=== PATIENT | male | born 1945 | race Caucasian/White ===

== ENCOUNTER 2016-11-05 08:56 | Emergency (ER) | payer MEDICAID ==
[~2016-11-05] VITALS: Ht 185.4 cm; Wt 84.0 kg
[2016-11-05] VITALS (7 sets, daily range): BP systolic 144–169; BP diastolic 80–90; PULSE 70–86; RESP 16–18; TEMP 97.8; O2SAT 95–99
[~2016-11-05 08:56] MED LIST: MOBI15TA PO
[2016-11-05] MEDS ORDERED: SODIUM CHLORID 0.9% 500 ML INJ 500 ML IV ONE ×2 (09:30→11:15)
[2016-11-05 09:43] LABS: AUTOMATED NEUTROPHIL # 6.8 TH/MM3 (1.8-7.7); BASOPHIL # 0.4 TH/MM3 (0-0.2); EOSINOPHIL # 0.1 TH/MM3 (0-0.4); EOSINOPHIL % 1.5 % (0.0-4.0); HEMATOCRIT 47.2 % (39.0-51.0); HEMO FLAGS DIFF FINAL; LYMPH % 15.4 % (9.0-44.0); LYMPHOCYTE # 1.5 TH/MM3 (1.0-4.8); MEAN CELL VOLUME 91.1 FL (80.0-100.0); MEAN CORPUSCULAR HEMOGLOBIN 29.5 PG (27.0-34.0); MEAN CORPUSCULAR HGB CONC 32.4 % (32.0-36.0); MONO % 6.8 % (0.0-8.0); NEUT % 72.3 % (16.0-70.0); PLATELET COUNT 181 TH/MM3 (150-450); RED BLOOD COUNT 5.18 MIL/MM3 (4.50-5.90); RED CELL DISTRIBUTION WIDTH 12.8 % (11.6-17.2); WHITE BLOOD COUNT 9.4 TH/MM3 (4.0-11.0)
[2016-11-05 10:00] LABS: BICARBONATE 25.2 MEQ/L (21.0-32.0)
[2016-11-05 10:03] LABS: ANION GAP 9 MEQ/L (5-15); AST (GOT) 15 U/L (15-37); CHLORIDE 109 MEQ/L (98-107); GLOMERULAR FILTRATION RATE 60 ML/MIN (>89); POTASSIUM 3.7 MEQ/L (3.5-5.1); SODIUM (NA) 143 MEQ/L (136-145)
[2016-11-05 10:05] LABS: ALT (GPT) 20 U/L (12-78)
[2016-11-05 10:06] LABS: ALKALINE PHOSPHATASE 97 U/L (45-117); BLOOD UREA NITROGEN 22 MG/DL (7-18)
[2016-11-05] MEDS ORDERED: IOHEXOL 350 MG/ML 10 ML VIAL (for RAD DIAG) IV ONE (10:18)
--- NOTE | 2016-11-05 10:48 | PD ---
HPI Chief Complaint: GI Complaint Time Seen by Provider: 09:11 Travel History International Travel<30 days: No Contact w/Intl Traveler<30days: No Traveled to known affect area: No History of Present Illness HPI Patient is a 71-year-old male who comes in complaining of abdominal pain. He says he has had pain for 2 days since eating some peanuts late at night. He said some nausea, but denies any vomiting. He says that he feels like he needs to have a bowel movement, but has been unable to. He denies any fever or chills. He denies any chest pain or shortness of breath. PFSH Past Medical History Diminished Hearing: No Immunizations Current: No Tetanus Vaccination: > 5 Years Influenza Vaccination: No Past Surgical History Other Surgery: Yes (left inguinal hernia repiar) Social History Alcohol Use: Yes (~2X WEEKLY) Tobacco Use: No Substance Use: No Allergies-Medications (Allergen,Severity, Reaction): Coded Allergies: No Known Allergies (Verified , 11/05/16) Reported Meds & Prescriptions Reported Meds & Active Scripts Active Mobic (Meloxicam) 15 Mg Tab 15 Mg PO DAILY Review of Systems Except as stated in HPI: all other systems reviewed are Neg General / Constitutional: No: Fever, Chills HENT: No: Headaches, Lightheadedness Cardiovascular: No: Chest Pain or Discomfort Respiratory: No: Shortness of Breath Gastrointestinal: Positive: Nausea, Abdominal Pain, Constipation, No: Vomiting , Diarrhea Genitourinary: No: Dysuria Musculoskeletal: No: Myalgias, Weakness Skin: No Rash, No Change in Pigmentation Neurologic: No: Weakness, Dizziness Physical Exam Narrative GENERAL: Awake and alert, and in no acute distress. SKIN: Focused skin assessment warm/dry. HEAD: Atraumatic. Normocephalic. EYES: Pupils equal and round. No scleral icterus. ENT: Mucous membranes pink and moist. NECK: Trachea midline. No JVD. CARDIOVASCULAR: Regular rate and rhythm. No murmur appreciated. RESPIRATORY: No accessory muscle use. Clear to auscultation. Breath sounds equal bilaterally. GASTROINTESTINAL: Abdomen soft, non-tender, nondistended. No rebound or guarding. Left inguinal hernia, bulge in pelvic area. MUSCULOSKELETAL: No obvious deformities. No clubbing. No cyanosis. No edema. NEUROLOGICAL: Awake and alert. No obvious cranial nerve deficits. Motor grossly within normal limits. Normal speech. PSYCHIATRIC: Appropriate mood and affect; insight and judgment normal. Data Data Last Documented VS Vital Signs Date Time Temp Pulse Resp B/P Pulse Ox O2 Delivery O2 Flow Rate FiO2 11/05/16 11:50 99 2.00 11/05/16 11:21 76 18 169/90 Room Air 11/05/16 09:03 97.8 Orders Complete Blood Count With Diff (11/05/16 09:17) Comprehensive Metabolic Panel (11/05/16 09:17) Ct Abd/Pel W Iv Contrast(Rout) (11/05/16 ) Sodium Chlorid 0.9% 500 Ml Inj (Ns 500 M (11/05/16 09:30) Iohexol 350 Inj (Omnipaque 350 Inj) (11/05/16 10:18) Morphine Inj (Morphine Inj) (11/05/16 11:15) Sodium Chlorid 0.9% 500 Ml Inj (Ns 500 M (11/05/16 11:15) Lactic Acid (11/05/16 11:02) Propofol 200 Mg/20 Ml Inj (Diprivan 200 (11/05/16 11:30) Labs Laboratory Tests Test 11/05/16 11/05/16 09:28 11:09 White Blood Count 9.4 TH/MM3 Red Blood Count 5.18 MIL/MM3 Hemoglobin 15.3 GM/DL Hematocrit 47.2 % Mean Corpuscular Volume 91.1 FL Mean Corpuscular Hemoglobin 29.5 PG Mean Corpuscular Hemoglobin 32.4 % Concent Red Cell Distribution Width 12.8 % Platelet Count 181 TH/MM3 Mean Platelet Volume 8.9 FL Neutrophils (%) (Auto) 72.3 % Lymphocytes (%) (Auto) 15.4 % Monocytes (%) (Auto) 6.8 % Eosinophils (%) (Auto) 1.5 % Basophils (%) (Auto) 4.0 % Neutrophils # (Auto) 6.8 TH/MM3 Lymphocytes # (Auto) 1.5 TH/MM3 Monocytes # (Auto) 0.6 TH/MM3 Eosinophils # (Auto) 0.1 TH/MM3 Basophils # (Auto) 0.4 TH/MM3 CBC Comment DIFF FINAL Differential Comment Sodium Level 143 MEQ/L Potassium Level 3.7 MEQ/L Chloride Level 109 MEQ/L Carbon Dioxide Level 25.2 MEQ/L Anion Gap 9 MEQ/L Blood Urea Nitrogen 22 MG/DL Creatinine 1.20 MG/DL Estimat Glomerular Filtration 60 ML/MIN Rate Random Glucose 106 MG/DL Calcium Level 9.1 MG/DL Total Bilirubin 1.0 MG/DL Aspartate Amino Transf 15 U/L (AST/SGOT) Alanine Aminotransferase 20 U/L (ALT/SGPT) Alkaline Phosphatase 97 U/L Total Protein 7.1 GM/DL Albumin 3.7 GM/DL Lactic Acid Level 0.7 mmol/L MDM Medical Decision Making Medical Screen Exam Complete: Yes Emergency Medical Condition: Yes Medical Record Reviewed: Yes Differential Diagnosis Colitis versus diverticulitis versus constipation Narrative Course Patient is a 8-year-old male who comes in complaining of left lower quadrant abdominal pain and constipation. Exam shows a bulge in the left pelvic area. IV established, labs sent. Labs show no acute abnormalities. CT performed shows a left inguinal hernia with sigmoid colon within it causing a partial small bowel obstruction. Dr. Colby consult for general surgery. He was able to reduce the hernia under conscious sedation. He advised the patient follow up in his office. Patient observed after conscious sedation with no further issues. His abdomen is soft and nontender. He is advised that if he feels the hernia come out again and is unable to reduce it, he should return immediately. Advised to follow-up with Dr. Colby on Tuesday. Diagnosis Primary Impression: Inguinal hernia Qualified Code: K40.31 - Recurrent unilateral inguinal hernia with obstruction and without gangrene Referrals: Jah Colby MD Patient Instructions: General Instructions, Inguinal Hernia (ED) Additional Instructions: Follow up with Dr. Colby of general surgery on Tuesday, call for an appointment. If you feel the hernia come out and cannot push it back in, return to the ED immediately. Return at any time for any worsening symptoms. Disposition: 01 DISCHARGE HOME Condition: Stable Minal Ye MD Nov 05, 2016 10:48
--- NOTE | 2016-11-05 10:50 | RADHPO ---
EXAM DATE/TIME: 11/05/2016 10:08 [facility] COMPARISON: CT ABDOMEN & PELVIS W CONTRAST, October 10, 2015, 12:50. INDICATIONS : Diffuse abdominal pain x 2 days. IV CONTRAST: 80 cc Omnipaque 350 (iohexol) IV ORAL CONTRAST: No oral contrast ingested. RADIATION DOSE: 13.36 CTDIvol (mGy) MEDICAL HISTORY : Hernia, inguinal. SURGICAL HISTORY : Inguinal hernia repair. ENCOUNTER: Initial ACUITY: 2 days PAIN SCALE: 9/10 LOCATION: Diffuse abdomen TECHNIQUE: Volumetric scanning of the abdomen and pelvis was performed. Using automated exposure control and ad justment of the mA and/or kV according to patient size, radiation dose was kept as low as reasonably achievable to obtain optimal diagnostic quality images. FINDINGS: LOWER LUNGS: The visualized lower lungs are clear. There is a small retrocardiac hiatal hernia. LIVER: Homogeneous density without lesion. There is no dilation of the biliary tree. Faintly calcified gall stones are again noted. SPLEEN: Normal size without lesion. PANCREAS: Within normal limits. KIDNEYS: Normal in size and shape. There is no mass, stone or hydronephrosis. ADRENAL GLANDS: Within normal limits. VASCULAR: There is a borderline abdominal aortic aneurysm measuring up to 3 cm with peripheral plaque. BOWEL/MESENTERY: There is mild gaseous distention of the proximal and mid colon extending down into the left lower donovan drant. A portion of the proximal sigmoid colon extends into the proximal inguinal hernia along with o mental fat. The colon past this point is decompressed. There are scattered diverticuli. There is no f ree air or fluid. The small bowel is decompressed and unremarkable. There is a normal appendix with s mall appendicolith. ABDOMINAL WALL: Within normal limits. RETROPERITONEUM: There is no lymphadenopathy. BLADDER: No wall thickening or mass. REPRODUCTIVE: Within normal limits. INGUINAL: No evidence of adenopathy. There is a left inguinal hernia containing a small amount of fluid and ome ntal fat. A portion of the distal descending colon extends into the proximal hernia. MUSCULOSKELETAL: Within normal limits for patient age. CONCLUSION: 1. Left inguinal hernia containing omental fat. The proximal sigmoid colon extends into the possible hernia and there is dilatation proximal to this portion which could indicate partial obstruction. 2. Borderline abdominal aortic aneurysm. 3. Hiatal hernia. 4. Cholelithiasis. Benitez Thompson MD on November 05, 2016 at 10:32 Board Certified Radiologist. This report was verified electronically.
[2016-11-05] MEDS ORDERED: MORPHINE SULFATE 4 MG/ML INJ IV PUSH ONE (11:15)
[2016-11-05] MEDS ORDERED: PROPOFOL 200 MG/20 ML AMP IV ONE (11:30)
--- NOTE | 2016-11-06 11:05 | MB ---
cc: MEGHANA DANIELLE DATE OF CONSULTATION: 11/05/2016. REASON FOR CONSULTATION: Incarcerated left inguinal hernia. PERSON REQUESTING CONSULTATION: Dr. Pagan, emergency room physician. HISTORY OF PRESENT ILLNESS: The patient is a 71-year-old male who was in his normal state of health when he developed increasing left groin and abdominal pain. He had some nausea but denies vomiting. He has been obstipated for least 24 hours. The patient was seen the emergency department and was found to have a left bulge in his groin concerning for possible inguinal hernia. The patient did undergo a CT scan which did show a sigmoid colon incarceration and there was also some omental fat and a inguinal hernia. General surgery was consulted to see the patient. The patient's evaluation states that approximately 10 years ago he had an open left inguinal hernia repair with Dr. Sanchez and was unaware that he had had a recurrence as he has not had any previous pain other than this episode. REVIEW OF SYSTEMS: A twelve-point review of systems was gone over with the patient and is negative except for the pertinent positives mentioned above in the history of present illness. PAST MEDICAL HISTORY: None. PAST SURGICAL HISTORY: 1. Left inguinal hernia repair as above. SOCIAL HISTORY: The patient uses alcohol occasionally. Denies illicit drug use or tobacco use. ALLERGIES: NO KNOWN DRUG ALLERGIES. MEDICATIONS: 1. Mobic PRN. FAMILY HISTORY: Noncontributory. PHYSICAL EXAMINATION: VITAL SIGNS: Temperature 97.8, pulse 76, respiratory rate 18, blood pressure 169/70, 02 saturation 99%. GENERAL: The patient is a well-developed, well-nourished male in no acute distress. HEAD, EYES, EARS, NOSE, THROAT: Head is normocephalic and atraumatic. Pupils equal, round and reactive to light. The sclerae are nonicteric. The mucous membranes are moist. NECK: The neck is supple. No jugular venous distention. LUNGS: The lungs are clear to auscultation bilaterally. Nonlabored breathing pattern. HEART: Regular rate and rhythm. ABDOMEN: Abdomen soft and nondistended. No tenderness. No surgical scars. No rebound tenderness. No organomegaly. No ascites. Normal bowel sounds. INGUINAL EXAM: Left small approximately 3 cm incarcerated left inguinal hernia likely direct, almost to the area of the femoral canal with a very large inguinal scar above this consistent with a hernia scar. TESTICULAR EXAM: Within normal limits. EXTREMITIES: No cyanosis, clubbing or edema. NEUROLOGIC: The patient is awake, alert, appropriate and oriented times four. Moving all extremities equally. Nonfocal. Cranial nerves II through XII are grossly intact. IMAGING STUDIES: CT scan shows left inguinal hernia as above. LABORATORY STUDIES: A white blood cell count 9.4. Lactic acid 0.7 within normal limits. ASSESSMENT AND PLAN: The patient is a 71-year-old male with an incarcerated left inguinal hernia. The patient has no obvious signs of bowel ischemia and I feel that a reduction in the emergency department this is indicated for his incarceration. Sedation will be performed. We will discuss this with Dr. Pagan, the emergency room physician, to provide conscious sedation for the attempted reduction. If successful, the patient after a brief observation can be discharged for close follow up for consideration of elective hernia repair. If we are unsuccessful at reducing this, the patient will need urgent surgical intervention. I have discussed this with the patient and he is in agreement with the attempted reduction of the hernia and will followup in my office on Tuesday or at his earliest convenience. MD STARR Schaffer/BRII /9:14 PM /10:49 AM MTDD
[2016-11-29] MEDS ORDERED: MOBI15TA PO (10:47)
== END 2016-11-05 13:58 | disposition home or self-care (01) ==
LOC: PHED 08:56
DX: K40.30 Unilateral inguinal hernia, with obstruction, without gangrene, not specified as recurrent (principal)
CPT/HCPCS: 49999; 74177; 80053; 83605; 85025; 94770; 96361; 96374; 99156; 99284; J2270; J7040; Q9967

== ENCOUNTER 2017-06-09 04:15 | Emergency (ER) | payer MEDICAID ==
[~2017-06-09] VITALS: Ht 185.4 cm; Wt 85.1 kg
[2017-06-09 04:17] VITALS: BP 114/83; PULSE 225; RESP 20; TEMP 98.4; O2SAT 99
[2017-06-09] MEDS ORDERED: DILTIAZEM HCL 25 MG/5 ML VIAL ONE (04:25)
[2017-06-09] MEDS ORDERED: ADENOSINE IV SOLN 3 MG/ML 2 ML VIAL ONE (04:25)
[2017-06-09] MEDS ORDERED: ADENOSINE IV SOLN 3 MG/ML 2 ML VIAL IV PUSH ONE ×2 (04:30)
[2017-06-09] MEDS ORDERED: DILTIAZEM HCL 25 MG/5 ML VIAL IV ONE (04:30)
[2017-06-09] MEDS ORDERED: SODIUM CHLOR 0.9% 1000 ML INJ 1,000 ML IV ONE (04:30)
[2017-06-09 04:39] VITALS: BP_SYST 123; BP_SYST 124; BP_DIAS 80; BP_DIAS 88; PULSE 94; RESP 20; O2SAT 98
[2017-06-09 04:43] VITALS: BP 124/88; PULSE 93; RESP 20; O2SAT 99
[2017-06-09] MEDS ORDERED: SODIUM CHLORIDE 0.9% FLUSH 10 ML FLUSH IVF PRN (04:45)
[2017-06-09] MEDS ORDERED: ASPIRIN 81 MG CHEW TAB CHEW ONE (04:45)
[2017-06-09 04:51] LABS: AUTOMATED NEUTROPHIL # 5.1 TH/MM3 (1.8-7.7); BASOPHIL # 0.1 TH/MM3 (0-0.2); EOSINOPHIL # 0.2 TH/MM3 (0-0.4); EOSINOPHIL % 3.1 % (0.0-4.0); HEMATOCRIT 48.5 % (39.0-51.0); HEMO FLAGS DIFF FINAL; LYMPH % 23.8 % (9.0-44.0); LYMPHOCYTE # 1.8 TH/MM3 (1.0-4.8); MEAN CELL VOLUME 87.2 FL (80.0-100.0); MEAN CORPUSCULAR HEMOGLOBIN 28.9 PG (27.0-34.0); MEAN CORPUSCULAR HGB CONC 33.1 % (32.0-36.0); MONO % 6.3 % (0.0-8.0); NEUT % 65.8 % (16.0-70.0); PLATELET COUNT 211 TH/MM3 (150-450); RED BLOOD COUNT 5.56 MIL/MM3 (4.50-5.90); RED CELL DISTRIBUTION WIDTH 12.4 % (11.6-17.2); WHITE BLOOD COUNT 7.7 TH/MM3 (4.0-11.0)
[2017-06-09 04:59] LABS: CHLORIDE 102 MEQ/L (98-107); POTASSIUM 3.8 MEQ/L (3.5-5.1); SODIUM (NA) 138 MEQ/L (136-145)
[2017-06-09 05:02] LABS: ANION GAP 10 MEQ/L (5-15); BICARBONATE 25.9 MEQ/L (21.0-32.0); BLOOD UREA NITROGEN 24 MG/DL (7-18); MAGNESIUM 2.1 MG/DL (1.5-2.5)
[2017-06-09 05:04] LABS: APTT (PATIENT) 29.2 SEC (24.3-30.1); PROTHROMBIN TIME - PATIENT 10.5 SEC (9.8-11.6)
[2017-06-09] MEDS ORDERED: PROP20TA3 PO ×2 (05:04→05:47)
[2017-06-09 05:05] LABS: GLOMERULAR FILTRATION RATE 50 ML/MIN (>89)
[2017-06-09 05:08] LABS: CREATINE KINASE 140 U/L (39-308)
--- NOTE | 2017-06-09 05:09 | PD ---
HPI Chief Complaint: Cardiac Complaint Time Seen by Provider: 04:24 Travel History International Travel<30 days: No Contact w/Intl Traveler<30days: No Traveled to known affect area: No History of Present Illness HPI 72-year-old male presents to the emergency department by private transportation for complaint of palpitations and fast heartbeat. Patient denies any chest pain shortness of breath sweats referred neck jaw back shoulder arm or abdominal pain. Patient's had no near-syncope or syncope. Patient has had no nausea or vomiting. States fast heart rate and palpitations have been present for approximately patient reports she's had this before and was evaluated at [facility] and in [place]. Patient states he wore a Holter for one month and was told by his assistant city attorney nothing was wrong. Patient denies other concerns this time. Patient denies chest pain or shortness of breath. Patient had no diaphoresis. Patient is unable to identify exacerbating or alleviating factors. Denies any known triggers. Took no treatment medications prior to arrival to the emergency department. Patient is not on a blood thinning agent. Patient reportedly has prescription for propranolol that he takes on an as- needed basis but he has been out of this prescription, (reports, typically prevents these episodes and controls them quickly when palpitations develop after he takes a dose). Patient denies caffeine or stimulant use or alcohol ingestion. Pain intensity, 0/10. PFSH Past Medical History Narrative Medical svt; no tobacco; nursing notes reviewed Heart Rhythm Problems: Yes (SVT) Diminished Hearing: No Kidney Stones: Yes Immunizations Current: No Tetanus Vaccination: Unknown Influenza Vaccination: No Past Surgical History Abdominal Surgery: Yes Other Surgery: Yes (LEFT INGUINAL HERNIA REPAIR) Social History Alcohol Use: Yes (SOCIALLY) Tobacco Use: No Substance Use: No Allergies-Medications (Allergen,Severity, Reaction): Coded Allergies: No Known Allergies (Verified Allergy, Unknown, 06/09/17) Reported Meds & Prescriptions Reported Meds & Active Scripts Active Propranolol (Propranolol HCl) 20 Mg Tab 20 Mg PO Q12HR Reported Propranolol (Propranolol HCl) 20 Mg Tab 20 Mg PO Q12HR Review of Systems General / Constitutional: Positive: Fever HENT: No: Congestion (objective) Cardiovascular: No: Chest Pain or Discomfort Respiratory: No: Shortness of Breath Gastrointestinal: No: Vomiting Musculoskeletal: No: Myalgias, Weakness Skin: Positive Rash Neurologic: No: Weakness Psychiatric: No: Anxiety Hematologic/Lymphatic: No: Easy Bruising Physical Exam Narrative GENERAL: Well-developed well-nourished female in no acute distress no respiratory distress; gcs: 15 SKIN: Warm and dry. HEAD: Normocephalic. EYES: No scleral icterus. No injection or drainage. NECK: Supple, trachea midline. No JVD or lymphadenopathy. CARDIOVASCULAR: Regular rate and rhythm without murmurs, gallops, or rubs. RESPIRATORY: Breath sounds equal bilaterally. No accessory muscle use. GASTROINTESTINAL: Abdomen soft, non-tender, nondistended. MUSCULOSKELETAL: No cyanosis, or edema. BACK: Nontender without obvious deformity. No CVA tenderness. Data Data Last Documented VS Vital Signs Date Time Temp Pulse Resp B/P (MAP) Pulse Ox O2 Delivery O2 Flow Rate FiO2 06/09/17 06:40 86 16 143/89 (107) 97 Room Air 06/09/17 05:26 2.00 06/09/17 04:17 98.4 Orders Orders Diltiazem Inj (Cardizem Inj) (06/09/17 04:30) Diltiazem Inj (Cardizem Inj) (06/09/17 04:25) Adenosine Inj (Adenocard Inj) (06/09/17 04:30) Sodium Chlor 0.9% 1000 Ml Inj (Ns 1000 M (06/09/17 04:30) Adenosine Inj (Adenocard Inj) (06/09/17 04:25) Adenosine Inj (Adenocard Inj) (06/09/17 04:30) Electrocardiogram (06/09/17 04:31) Basic Metabolic Panel (Bmp) (06/09/17 04:31) Ckmb (Isoenzyme) Profile (06/09/17 04:31) Complete Blood Count With Diff (06/09/17 04:31) Magnesium (Mg) (06/09/17 04:31) Prothrombin Time / Inr (Pt) (06/09/17 04:31) Act Partial Throm Time (Ptt) (06/09/17 04:31) Troponin I (06/09/17 04:31) Chest, Single Ap (06/09/17 04:31) Ecg Monitoring (06/09/17 04:31) Bilateral Bp Monitoring (06/09/17 04:31) Iv Access Insert/Monitor (06/09/17 04:31) Oximetry (06/09/17 04:31) Oxygen Administration (06/09/17 04:31) Sodium Chloride 0.9% Flush (Ns Flush) (06/09/17 04:45) Thyroid Stimulating Hormone (06/09/17 04:31) Electrocardiogram (06/09/17 ) Aspirin Chew (Aspirin Chew) (06/09/17 04:45) CKMB (06/09/17 04:20) CKMB% (06/09/17 04:20) Troponin I (06/09/17 07:20) Labs Laboratory Tests Test 06/09/17 04:20 White Blood Count 7.7 TH/MM3 Red Blood Count 5.56 MIL/MM3 Hemoglobin 16.1 GM/DL Hematocrit 48.5 % Mean Corpuscular Volume 87.2 FL Mean Corpuscular Hemoglobin 28.9 PG Mean Corpuscular Hemoglobin Concent 33.1 % Red Cell Distribution Width 12.4 % Platelet Count 211 TH/MM3 Mean Platelet Volume 8.8 FL Neutrophils (%) (Auto) 65.8 % Lymphocytes (%) (Auto) 23.8 % Monocytes (%) (Auto) 6.3 % Eosinophils (%) (Auto) 3.1 % Basophils (%) (Auto) 1.0 % Neutrophils # (Auto) 5.1 TH/MM3 Lymphocytes # (Auto) 1.8 TH/MM3 Monocytes # (Auto) 0.5 TH/MM3 Eosinophils # (Auto) 0.2 TH/MM3 Basophils # (Auto) 0.1 TH/MM3 CBC Comment DIFF FINAL Differential Comment Prothrombin Time 10.5 SEC Prothromb Time International Ratio 1.0 RATIO Activated Partial Thromboplast Time 29.2 SEC Blood Urea Nitrogen 24 MG/DL Creatinine 1.40 MG/DL Random Glucose 102 MG/DL Calcium Level 9.8 MG/DL Magnesium Level 2.1 MG/DL Sodium Level 138 MEQ/L Potassium Level 3.8 MEQ/L Chloride Level 102 MEQ/L Carbon Dioxide Level 25.9 MEQ/L Anion Gap 10 MEQ/L Estimat Glomerular Filtration Rate 50 ML/MIN Total Creatine Kinase 140 U/L Creatine Kinase MB 2.3 NG/ML Troponin I LESS THAN 0.02 NG/ML Thyroid Stimulating Hormone 3rd Gen 2.460 uIU/ML MDM Medical Decision Making Medical Screen Exam Complete: Yes Emergency Medical Condition: Yes Medical Record Reviewed: Yes Interpretation(s) Vital Signs Date Time Temp Pulse Resp B/P (MAP) Pulse Ox O2 Delivery O2 Flow Rate FiO2 06/09/17 04:43 93 20 124/88 (100) 99 2.00 06/09/17 04:39 94 20 123/80 (94) 98 Nasal Cannula 2.00 124/88 (100) 06/09/17 04:20 99 Nasal Cannula 2.00 06/09/17 04:17 98.4 225 20 114/83 (93) 99 CBC & BMP Diagram 06/09/17 04:20 Calcium Level 9.8, Magnesium Level 2.1 Vital Signs Date Time Temp Pulse Resp B/P (MAP) Pulse Ox O2 Delivery O2 Flow Rate FiO2 06/09/17 04:43 93 20 124/88 (100) 99 2.00 06/09/17 04:39 94 20 123/80 (94) 98 Nasal Cannula 2.00 124/88 (100) 06/09/17 04:20 99 Nasal Cannula 2.00 06/09/17 04:17 98.4 225 20 114/83 (93) 99 EKG: SVT rate [address] elevation nonspecific ST-T changes EKG: Sinus tachycardia rate [address] elevation or injury pattern or ectopy noted Differential Diagnosis Palpitations, arrhythmia, SVT, atrial fibrillation, atypical chest pain, DC, ACS ; patient was placed on air sampling and monitoring with continuous pulse oximetry and IV access obtained specimens collected and sent for resulting; patient administered Adenocard milligrams followed by Adenocard 12 mg for converted back to sinus rhythm this was not utilized. Narrative Course Patient is placed on air sampling and monitoring with continuous pulse oximetry IV access obtained patient's heart rate and a regular narrow complex rhythm; vagal maneuvers attempted without success; EKG consistent with SVT with regular pattern no acute injury pattern as to elevation: Patient administered 6 mg of Adenocard rapid push with subsequent bolus without change in rate; patient administered additional Adenocard 12 mg IV rapid push with normal saline bolus with conversion to sinus rhythm. Patient tolerated chemical conversion well. Repeat EKG was sinus tachycardia rate [address] elevation or injury pattern or ectopy noted CBC is automated differential values in normal range Metabolic panel values in normal range except for renal insufficiency BUN 24 creatinine 1.4 Troponin I is less than 0.02, not elevated with a CK total of 140 which is not elevated; TSH: Was found to be within normal range Chest x-ray no lobar infiltrate no vascular congestion. @ 5:35 patient remains stable without recurrent psvt; patient reports that again he has been worked up extensively by his assistant city attorney in [place] who has given her a prescription for propranolol 20 mg that he is to take every 12 hours as needed. Patient states he is out of his medication. Patient states normally he would've taken a dose and he typically has immediate response to the medication with resolution of his palpitations or rapid heartbeat but as he did not have access to this medication he came to the emergency room tonight for intervention. Patient states that he needs a refill of this medication. Patient again denies any chest pain or shortness of breath and is desirous of being discharged home. Patient states he has had this before and he typically responds well to propranolol but did not have access to this medication this morning. Care signed over to Dr Cardona for follow up of trop #2 and disposition Diagnosis Primary Impression: Paroxysmal SVT (supraventricular tachycardia) Additional Impression: Medication refill Referrals: Primary Care Physician 1 day Patient Instructions: General Instructions Additional Instructions: Follow-up with your primary care provider/assistant city attorney call office in a.m. to schedule follow-up appointment this week Take propranolol as prescribed as needed for palpitations per year assistant city attorney prescription Increase fluid hydration Do not drink alcoholic beverages or caffeine Return to the emergency department for any concerns or change in condition Med/Other Pt SpecificInfo: Prescription(s) given Scripts Propranolol (Propranolol) 20 Mg Tab 20 MG PO Q12HR, #20 TAB 0 Refills Prov: Silvana Sidhu MD 06/09/17 Disposition: 01 DISCHARGE HOME Condition: Stable Silvana Sidhu MD Jun 09, 2017 05:09
[2017-06-09 05:21] LABS: CKMB 2.3 NG/ML (0.5-3.6)
--- NOTE | 2017-06-09 05:23 | RADRPT ---
EXAM DATE/TIME: 06/09/2017 04:40 [facility] COMPARISON: SHOULDER RIGHT COMPLETE (>2VWS), February 06, 2016, 15:59. INDICATIONS : Chest pain. MEDICAL HISTORY : None. SURGICAL HISTORY : None. ENCOUNTER: Initial ACUITY: 1 day PAIN SCORE: 6/10 LOCATION: Bilateral chest FINDINGS: The heart size is normal. The lungs are free of focal consolidation. No effusion is seen. There is as ymmetric density in the right upper lung likely related to prominence of the anterior first right rib . This appearance was present on prior shoulder series. CONCLUSION: No acute disease. Zhao Ellsworth MD on June 09, 2017 at 5:19 Board Certified Radiologist. This report was verified electronically.
[2017-06-09 05:26] VITALS: BP 128/68; PULSE 88; RESP 16; O2SAT 100
[2017-06-09 06:40] VITALS: BP 143/89; PULSE 86; RESP 16; O2SAT 97
[2017-06-09 07:35] VITALS: BP 140/80; PULSE 78; RESP 16; O2SAT 98
--- NOTE | 2017-06-09 17:45 | EKG ---
Date Performed: 06/09/2017 Time Performed: 04:24:13 PTAGE: 72 years EKG: SUPRAVENTRICULAR TACHYCARDIA NONSPECIFIC ST & T-WAVE ABNORMALITY When compared to previous tracing, patient is now in a Supraventricular tachycardia. ABNORMAL RHYTHM ECG PREVIOUS TRACING : 12/13/2013 10.54 DOCTOR: Panchito Matos Interpretating Date/Time 06/09/2017 17:44:43
--- NOTE | 2017-06-09 17:49 | EKG ---
Date Performed: 06/09/2017 Time Performed: 04:31:53 PTAGE: 72 years EKG: SINUS TACHYCARDIA When compared to previous tracing, patient has converted from Supraventri cular tachycardia to a sinus tachycardia. ABNORMAL RHYTHM ECG PREVIOUS TRACING : 06/09/2017 04.24.13 DOCTOR: Panchito Matos Interpretating Date/Time 06/09/2017 17:47:41
== END 2017-06-09 08:20 | disposition home or self-care (01) ==
LOC: PHED 04:15
DX: I47.1 Supraventricular tachycardia (principal); Z76.0 Encounter for issue of repeat prescription
CPT/HCPCS: 71010; 80048; 82550; 82552; 83735; 84443; 84484; 85025; 85610; 85730; 93005; 96361; 96374; 96375; 99285; J0153; J7030

== ENCOUNTER 2017-07-14 09:10 | Emergency (ER) | payer MEDICAID ==
[~2017-07-14 09:10] MED LIST changes: -MOBI15TA PO; +PROP20TA3 PO
[2017-07-14 09:23] VITALS: BP 107/83; PULSE 177; RESP 18; TEMP 98.4; O2SAT 96
[2017-07-14 09:25] VITALS: BP 145/73; PULSE 85; RESP 20; O2SAT 98
[2017-07-14] MEDS ORDERED: ADENOSINE IV SOLN 3 MG/ML 2 ML VIAL IV PUSH ONE (09:30)
[2017-07-14] MEDS ORDERED: PROP40TA3 PO (09:36)
--- NOTE | 2017-07-14 09:37 | PD ---
HPI Chief Complaint: Cardiac Complaint Time Seen by Provider: 09:21 Travel History International Travel<30 days: No Contact w/Intl Traveler<30days: No Traveled to known affect area: No History of Present Illness HPI This 72-year-old male is complaining of palpitations. He has had trouble like this past. He has been here several months ago for palpitations. At that time he was found to be in SVT. He did not respond to 6 mg of adenosine but did respond to 12 mg of adenosine. He says he gets these attacks several times a year. They just started a few years ago. He has seen a memory care program director and was told that his heart was admitted. He is not on any medication that he has been told to take an aspirin every day. At one time he had a prescription for propranolol 40 mg which he said would stop these attacks. He has run out of the medication. He is not having any chest pain. He is not short of breath. PFSH Past Medical History Heart Rhythm Problems: Yes (SVT) Diminished Hearing: No Kidney Stones: Yes Immunizations Current: No Past Surgical History Abdominal Surgery: Yes Other Surgery: Yes (LEFT INGUINAL HERNIA REPAIR) Social History Alcohol Use: Yes (SOCIALLY) Tobacco Use: No Substance Use: No Allergies-Medications (Allergen,Severity, Reaction): Coded Allergies: No Known Allergies (Verified Allergy, Unknown, 06/09/17) Reported Meds & Prescriptions Reported Meds & Active Scripts Active Propranolol (Propranolol HCl) 40 Mg Tab 40 Mg PO ONCE Review of Systems Except as stated in HPI: all other systems reviewed are Neg General / Constitutional: No: Fever, Chills Eyes: No: Blurred Vision, Photophobia HENT: No: Headaches Cardiovascular: Positive: Palpitations, Tachycardia, No: Chest Pain or Discomfort, Syncope Respiratory: No: Cough, Shortness of Breath Gastrointestinal: No: Vomiting, Diarrhea Musculoskeletal: No: Myalgias, Arthralgias Psychiatric: No: Anxiety, Depression Hematologic/Lymphatic: No: Easy Bruising Physical Exam Narrative GENERAL: Well-developed male. He is awake alert and oriented SKIN: Focused skin assessment warm/dry. HEAD: Atraumatic. Normocephalic. EYES: Pupils equal and round. No scleral icterus. No injection or drainage. ENT: No nasal bleeding or discharge. Mucous membranes pink and moist. NECK: Trachea midline. No JVD. CARDIOVASCULAR: Rapid Regular rate and rhythm. No murmur appreciated. RESPIRATORY: No accessory muscle use. Clear to auscultation. Breath sounds equal bilaterally. GASTROINTESTINAL: Abdomen soft, non-tender, nondistended. Hepatic and splenic margins not palpable. MUSCULOSKELETAL: No obvious deformities. No clubbing. No cyanosis. No edema. NEUROLOGICAL: Awake and alert. No obvious cranial nerve deficits. Motor grossly within normal limits. Normal speech. PSYCHIATRIC: Appropriate mood and affect; insight and judgment normal. Data Data Last Documented VS Vital Signs Date Time Temp Pulse Resp B/P (MAP) Pulse Ox O2 Delivery O2 Flow Rate FiO2 07/14/17 09:45 80 18 116/77 (90) 97 Room Air 07/14/17 09:23 98.4 Orders Orders Complete Blood Count With Diff (07/14/17 09:22) Basic Metabolic Panel (Bmp) (07/14/17 09:22) Troponin I (07/14/17 09:22) Thyroid Stimulating Hormone (07/14/17 09:22) Adenosine Inj (Adenocard Inj) (07/14/17 09:30) Electrocardiogram (07/14/17 ) Labs Laboratory Tests Test 07/14/17 09:15 White Blood Count 9.8 TH/MM3 Red Blood Count 5.47 MIL/MM3 Hemoglobin 15.5 GM/DL Hematocrit 48.9 % Mean Corpuscular Volume 89.4 FL Mean Corpuscular Hemoglobin 28.3 PG Mean Corpuscular Hemoglobin Concent 31.7 % Red Cell Distribution Width 13.2 % Platelet Count 250 TH/MM3 Mean Platelet Volume 8.2 FL Neutrophils (%) (Auto) 73.9 % Lymphocytes (%) (Auto) 15.3 % Monocytes (%) (Auto) 8.1 % Eosinophils (%) (Auto) 1.6 % Basophils (%) (Auto) 1.1 % Neutrophils # (Auto) 7.2 TH/MM3 Lymphocytes # (Auto) 1.5 TH/MM3 Monocytes # (Auto) 0.8 TH/MM3 Eosinophils # (Auto) 0.2 TH/MM3 Basophils # (Auto) 0.1 TH/MM3 CBC Comment DIFF FINAL Differential Comment Blood Urea Nitrogen 28 MG/DL Creatinine 1.70 MG/DL Random Glucose 122 MG/DL Calcium Level 9.6 MG/DL Carbon Dioxide Level 23.5 MEQ/L Estimat Glomerular Filtration Rate 40 ML/MIN Troponin I LESS THAN 0.02 NG/ML Thyroid Stimulating Hormone 3rd Gen 1.580 uIU/ML MDM Medical Decision Making Medical Screen Exam Complete: Yes Emergency Medical Condition: Yes Medical Record Reviewed: Yes Differential Diagnosis Differential includes SVT, atrial fibrillation, atrial flutter, V. tach Narrative Course EKG shows a narrow complex tachycardia at a rate of 180. This is consistent with SVT or flutter with block. Review of the previous chart shows that the patient had previously responded to 12 mg of intravenous adenosine. I have ordered this. Patient was given the adenosine and he converted to sinus rhythm. He tolerated the treatment well. He has been observed and he has been stable. His troponin is less than 0.02. Diagnosis Primary Impression: Paroxysmal SVT (supraventricular tachycardia) Scripts Propranolol (Propranolol) 40 Mg Tab 40 MG PO ONCE for palpitations, #30 TAB 0 Refills Prov: Oz Calvo MD 07/14/17 Disposition: 01 DISCHARGE HOME Condition: Stable Oz Calvo MD Jul 14, 2017 09:37
[2017-07-14 09:45] VITALS: BP 116/77; PULSE 80; RESP 18; O2SAT 97
[2017-07-14 09:47] LABS: AUTOMATED NEUTROPHIL # 7.2 TH/MM3 (1.8-7.7); BASOPHIL # 0.1 TH/MM3 (0-0.2); BASOPHIL % 1.1 % (0.0-2.0); EOSINOPHIL # 0.2 TH/MM3 (0-0.4); EOSINOPHIL % 1.6 % (0.0-4.0); HEMATOCRIT 48.9 % (39.0-51.0); HEMOGLOBIN 15.5 GM/DL (13.0-17.0); LYMPH % 15.3 % (9.0-44.0); LYMPHOCYTE # 1.5 TH/MM3 (1.0-4.8); MEAN CELL VOLUME 89.4 FL (80.0-100.0); MEAN CORPUSCULAR HEMOGLOBIN 28.3 PG (27.0-34.0); MEAN CORPUSCULAR HGB CONC 31.7 % (32.0-36.0); MEAN PLATELET VOLUME 8.2 FL (7.0-11.0); MONO % 8.1 % (0.0-8.0); MONOCYTE # 0.8 TH/MM3 (0-0.9); NEUT % 73.9 % (16.0-70.0); PLATELET COUNT 250 TH/MM3 (150-450); RED BLOOD COUNT 5.47 MIL/MM3 (4.50-5.90); RED CELL DISTRIBUTION WIDTH 13.2 % (11.6-17.2); WHITE BLOOD COUNT 9.8 TH/MM3 (4.0-11.0)
[2017-07-14 10:17] LABS: CALCIUM 9.6 MG/DL (8.5-10.1)
[2017-07-14 10:18] LABS: BICARBONATE 23.5 MEQ/L (21.0-32.0); GLUCOSE,RANDOM 122 MG/DL (74-106)
[2017-07-14 10:21] LABS: GLOMERULAR FILTRATION RATE 40 ML/MIN (>89)
[2017-07-14 10:22] LABS: BLOOD UREA NITROGEN 28 MG/DL (7-18)
[2017-07-14 10:26] LABS: TROPONIN I LESS THAN 0.02 NG/ML (0.02-0.05)
[2017-07-14 11:28] VITALS: BP 120/83
[2017-07-14 11:29] LABS: CHLORIDE 108 MEQ/L (98-107); SODIUM (NA) 141 MEQ/L (136-145)
--- NOTE | 2017-07-15 18:34 | EKG ---
Date Performed: 07/14/2017 Time Performed: 09:18:54 PTAGE: 72 years EKG: SUPRAVENTRICULAR TACHYCARDIA NONSPECIFIC ST & T-WAVE ABNORMALITY ABNORMAL RHYTHM ECG PREVIOUS TRACING : 06/09/2017 04.31 DOCTOR: Clementine Disla Interpretating Date/Time 07/15/2017 18:33:22
== END 2017-07-14 11:33 | disposition home or self-care (01) ==
LOC: PHED 09:10
DX: I47.1 Supraventricular tachycardia (principal); R00.2 Palpitations; R94.31 Abnormal electrocardiogram [ECG] [EKG]; Z79.899 Other long term (current) drug therapy
CPT/HCPCS: 80048; 84443; 84484; 85025; 93005; 96374; 99284; J0153

== ENCOUNTER 2017-08-08 01:36 | Emergency (ER) | payer MEDICAID ==
[~2017-08-08] VITALS: Ht 185.4 cm; Wt 86.6 kg
[~2017-08-08 01:36] MED LIST changes: -PROP20TA3 PO; +PROP40TA3 PO
[2017-08-08 01:43] VITALS: PULSE 57; RESP 12; TEMP 97.4; O2SAT 98
[2017-08-08] MEDS ORDERED: SODIUM CHLOR 0.9% 1000 ML INJ 1,000 ML IV SCH (03:15)
[2017-08-08] MEDS ORDERED: ONDANSETRON HCL 4 MG/2 ML VIAL IVP ONE (03:15)
[2017-08-08] MEDS ORDERED: MORPHINE SULFATE 2 MG/ML INJ IV PUSH ONE (03:15)
[2017-08-08] MEDS ORDERED: SODIUM CHLORIDE 0.9% FLUSH 10 ML FLUSH IV FLUSH PRN (03:15)
[2017-08-08 03:30] VITALS: BP 145/84; PULSE 73; RESP 18; O2SAT 97
[2017-08-08 03:37] LABS: AUTOMATED NEUTROPHIL # 10.2 TH/MM3 (1.8-7.7); BASOPHIL # 0.6 TH/MM3 (0-0.2); BASOPHIL % 4.5 % (0.0-2.0); EOSINOPHIL # 0.1 TH/MM3 (0-0.4); EOSINOPHIL % 0.5 % (0.0-4.0); HEMATOCRIT 47.5 % (39.0-51.0); LYMPH % 8.4 % (9.0-44.0); MEAN CELL VOLUME 89.6 FL (80.0-100.0); MEAN CORPUSCULAR HEMOGLOBIN 30.1 PG (27.0-34.0); MEAN CORPUSCULAR HGB CONC 33.6 % (32.0-36.0); MEAN PLATELET VOLUME 8.4 FL (7.0-11.0); MONO % 4.3 % (0.0-8.0); MONOCYTE # 0.5 TH/MM3 (0-0.9); NEUT % 82.3 % (16.0-70.0); PLATELET COUNT 184 TH/MM3 (150-450); RED CELL DISTRIBUTION WIDTH 12.9 % (11.6-17.2); WHITE BLOOD COUNT 12.4 TH/MM3 (4.0-11.0)
[2017-08-08 03:41] LABS: BILIRUBIN, URINE NEG (NEG); BLOOD, URINE NEG (NEG); GLUCOSE,URINE NEG (NEG); KETONE, URINE TRACE mg/dL (NEG); NITRITE,URINE NEG (NEG); PH, URINE 5.5 (5.0-8.5); URINE LEUKOCYTE ESTERASE NEG (NEG)
[2017-08-08 03:45] LABS: CHLORIDE 106 MEQ/L (98-107); SODIUM (NA) 139 MEQ/L (136-145)
[2017-08-08 03:50] LABS: ALBUMIN 3.7 GM/DL (3.4-5.0); BICARBONATE 28.5 MEQ/L (21.0-32.0); CALCIUM 9.4 MG/DL (8.5-10.1); GLUCOSE,RANDOM 125 MG/DL (74-106); LIPASE 222 U/L (73-393)
[2017-08-08 03:51] LABS: BLOOD UREA NITROGEN 28 MG/DL (7-18)
[2017-08-08 03:53] LABS: ALT (GPT) 21 U/L (12-78); AST (GOT) 18 U/L (15-37); GLOMERULAR FILTRATION RATE 54 ML/MIN (>89)
[2017-08-08 03:55] LABS: TOTAL BILIRUBIN ADULT 0.4 MG/DL (0.2-1.0); TOTAL PROTEIN 7.6 GM/DL (6.4-8.2); URINE COLOR YELLOW (YELLW/STRAW)
[2017-08-08 03:56] LABS: ALKALINE PHOSPHATASE 121 U/L (45-117); MUCUS URINE OCC /lpf (OCC); SQUAMOUS EPITHELIAL CELL URINE 0-5 /hpf (0-5)
[2017-08-08 03:57] LABS: AMORPHOUS SEDIMENT, URINE SMALL
[2017-08-08 03:58] LABS: WBC, URINE 0-2 /hpf (0-5)
[2017-08-08] MEDS ORDERED: IOHEXOL 350 MG/ML 10 ML VIAL (for RAD DIAG) IVCONTRAST ONE (04:43)
[2017-08-08 04:44] VITALS: BP 158/82; PULSE 89; RESP 18; O2SAT 94
--- NOTE | 2017-08-08 05:00 | RADRPT ---
EXAM DATE/TIME: 08/08/2017 04:23 [facility] COMPARISON: No previous studies available for comparison. INDICATIONS : Right flank pain. IV CONTRAST: 75 cc Omnipaque 350 (iohexol) IV ORAL CONTRAST: No oral contrast ingested. RADIATION DOSE: 13.70 CTDIvol (mGy) MEDICAL HISTORY : Hernia, inguinal. SURGICAL HISTORY : Inguinal hernia repair. ENCOUNTER: Initial ACUITY: 2 days PAIN SCALE: 10/10 LOCATION: Right flank TECHNIQUE: Volumetric scanning of the abdomen and pelvis was performed. Using automated exposure control and ad justment of the mA and/or kV according to patient size, radiation dose was kept as low as reasonably achievable to obtain optimal diagnostic quality images. DICOM format image data is available electro nically for review and comparison. FINDINGS: There is a calcified granuloma in the left lower lobe. Minimal dependent atelectasis in the lungs. No acute findings in the liver, spleen, adrenals, kidneys or pancreas. Partially calcified gallstone in gallbladder. Small hiatal hernia. There is colonic diverticulosis without diverticulitis. CONCLUSION: 1. No acute findings. Small hiatal hernia. Colonic diverticulosis without diverticulitis. 2. No renal or ureteral calculi. No evidence for obstructive uropathy. Steven Hart MD on August 08, 2017 at 4:54 Board Certified Radiologist. This report was verified electronically.
--- NOTE | 2017-08-08 05:13 | PD ---
HPI Chief Complaint: Flank/Kidney Pain Time Seen by Provider: 03:15 Travel History International Travel<30 days: No Contact w/Intl Traveler<30days: No Traveled to known affect area: No History of Present Illness HPI 72-year-old male presents to the emergency department by private transportation for complaint of right-sided flank pain. Patient denies any fever or chills; patient denies abdominal pain; patient reports he has had nausea and vomiting. Patient denies hematemesis coffee-ground emesis or bilious emesis. Patient states symptoms been present for 2 hours. Patient states it may be related to history of gallbladder disease. Patient states he's been told for years that he has gallstones. Patient states periodically after a fatty meal he will have an episode of flank pain or abdominal pain. Patient denies any epigastric pain or right upper quadrant pain or generalized abdominal pain. No reported history of dyslipidemia. Occasional alcohol use. No prior history of gastritis peptic ulcer disease or pancreatitis. Patient denies chest pain or shortness of breath. Patient rates pain 8/10 in intensity. Patient did eat chili for dinner last evening. No report of dietary indiscretion well water ingestion or foreign travel. Patient denies any change in bowel habits or diarrhea. No melena hematochezia. Patient denies history of kidney stones. [facility] Past Medical History Narrative Medical Review of medical record and nursing notes; SVT kidney stones inguinal herniorrhaphy; no tobacco use no alcohol use Heart Rhythm Problems: Yes (SVT) Diminished Hearing: No Kidney Stones: Yes Immunizations Current: No Tetanus Vaccination: > 5 Years Influenza Vaccination: No Past Surgical History Abdominal Surgery: Yes Other Surgery: Yes (LEFT INGUINAL HERNIA REPAIR) Social History Alcohol Use: No Tobacco Use: No Substance Use: No Allergies-Medications (Allergen,Severity, Reaction): Coded Allergies: No Known Allergies (Verified Allergy, Unknown, 08/08/17) Reported Meds & Prescriptions Reported Meds & Active Scripts Active Propranolol (Propranolol HCl) 40 Mg Tab 40 Mg PO ONCE Review of Systems Except as stated in HPI: all other systems reviewed are Neg General / Constitutional: No: Fever, Chills HENT: No: Congestion Cardiovascular: No: Chest Pain or Discomfort Respiratory: No: Shortness of Breath Gastrointestinal: Positive: Nausea, Vomiting, No: Abdominal Pain Genitourinary: Positive: Flank Pain, No: Dysuria, Hematuria Musculoskeletal: No: Myalgias, Arthralgias Skin: No Rash Neurologic: No: Weakness Psychiatric: No: Anxiety Hematologic/Lymphatic: No: Lymph Node Enlargement Physical Exam Narrative GENERAL: Well-developed well-nourished elderly male in obvious acute distress no respiratory distress SKIN: Warm and dry. HEAD: Normocephalic. EYES: No scleral icterus. No injection or drainage. NECK: Supple, trachea midline. No JVD or lymphadenopathy. CARDIOVASCULAR: Regular rate and rhythm without murmurs, gallops, or rubs. RESPIRATORY: Breath sounds equal bilaterally. No accessory muscle use. GASTROINTESTINAL: Abdomen soft, non-tender, nondistended. No clinical Garcia sign. No guarding no rebound. No palpable pulsatile mass. MUSCULOSKELETAL: No cyanosis, or edema. Radial and dorsalis pedis pulses 2+ to palpation. BACK: Nontender without obvious deformity. No CVA tenderness. Data Data Last Documented VS Vital Signs Date Time Temp Pulse Resp B/P (MAP) Pulse Ox O2 Delivery O2 Flow Rate FiO2 08/08/17 04:44 89 18 158/82 (107) 94 Room Air 08/08/17 01:43 97.4 Orders Orders Complete Blood Count With Diff (08/08/17 03:15) Comprehensive Metabolic Panel (08/08/17 03:15) Lipase (08/08/17 03:15) Urinalysis - C+S If Indicated (08/08/17 03:15) Ct Abd/Pel W Iv Contrast(Rout) (08/08/17 03:15) Iv Access Insert/Monitor (08/08/17 03:15) Ecg Monitoring (08/08/17 03:15) Oximetry (08/08/17 03:15) Ondansetron Inj (Zofran Inj) (08/08/17 03:15) Sodium Chlor 0.9% 1000 Ml Inj (Ns 1000 M (08/08/17 03:15) Sodium Chloride 0.9% Flush (Ns Flush) (08/08/17 03:15) Electrocardiogram (08/08/17 03:15) Morphine Inj (Morphine Inj) (08/08/17 03:15) Iohexol 350 Inj (Omnipaque 350 Inj) (08/08/17 04:43) Ed Discharge Order (08/08/17 05:13) Labs Laboratory Tests Test 08/08/17 03:30 White Blood Count 12.4 TH/MM3 Red Blood Count 5.30 MIL/MM3 Hemoglobin 16.0 GM/DL Hematocrit 47.5 % Mean Corpuscular Volume 89.6 FL Mean Corpuscular Hemoglobin 30.1 PG Mean Corpuscular Hemoglobin Concent 33.6 % Red Cell Distribution Width 12.9 % Platelet Count 184 TH/MM3 Mean Platelet Volume 8.4 FL Neutrophils (%) (Auto) 82.3 % Lymphocytes (%) (Auto) 8.4 % Monocytes (%) (Auto) 4.3 % Eosinophils (%) (Auto) 0.5 % Basophils (%) (Auto) 4.5 % Neutrophils # (Auto) 10.2 TH/MM3 Lymphocytes # (Auto) 1.0 TH/MM3 Monocytes # (Auto) 0.5 TH/MM3 Eosinophils # (Auto) 0.1 TH/MM3 Basophils # (Auto) 0.6 TH/MM3 CBC Comment AUTO DIFF Differential Comment AUTO DIFF CONFIRMED Platelet Estimate NORMAL Platelet Morphology Comment NORMAL Red Cell Morphology Comment NORMAL Urine Color YELLOW Urine Turbidity CLEAR Urine pH 5.5 Urine Specific Happy 1.025 Urine Protein NEG mg/dL Urine Glucose (UA) NEG mg/dL Urine Ketones TRACE mg/dL Urine Occult Blood NEG Urine Nitrite NEG Urine Bilirubin NEG Urine Leukocyte Esterase NEG Urine WBC 0-2 /hpf Urine Squamous Epithelial Cells 0-5 /hpf Urine Amorphous Sediment SMALL Urine Mucus OCC /lpf Microscopic Urinalysis Comment CULT NOT INDICATED Blood Urea Nitrogen 28 MG/DL Creatinine 1.30 MG/DL Random Glucose 125 MG/DL Total Protein 7.6 GM/DL Albumin 3.7 GM/DL Calcium Level 9.4 MG/DL Alkaline Phosphatase 121 U/L Aspartate Amino Transf (AST/SGOT) 18 U/L Alanine Aminotransferase (ALT/SGPT) 21 U/L Total Bilirubin 0.4 MG/DL Sodium Level 139 MEQ/L Potassium Level 3.9 MEQ/L Chloride Level 106 MEQ/L Carbon Dioxide Level 28.5 MEQ/L Anion Gap 5 MEQ/L Estimat Glomerular Filtration Rate 54 ML/MIN Lipase 222 U/L [facility] Medical Decision Making Medical Screen Exam Complete: Yes Emergency Medical Condition: Yes Medical Record Reviewed: Yes Interpretation(s) EKG sinus rhythm rate [address] elevation or injury pattern or ectopy noted Last Impressions Abdomen/Pelvis CT 08/08/175 Signed Impressions: Service Date/Time: Tuesday, August 08, 2017 04:23 - CONCLUSION: 1. No acute findings. Small hiatal hernia. Colonic diverticulosis without diverticulitis. 2. No renal or ureteral calculi. No evidence for obstructive uropathy. Steven Hart MD CBC & BMP Diagram 08/08/17 03:30 Total Protein 7.6, Albumin 3.7, Calcium Level 9.4, Alkaline Phosphatase 121 H, Aspartate Amino Transf (AST/SGOT) 18, Alanine Aminotransferase (ALT/SGPT) 21, Total Bilirubin 0.4 Vital Signs Date Time Temp Pulse Resp B/P (MAP) Pulse Ox O2 Delivery O2 Flow Rate FiO2 08/08/17 04:44 89 18 158/82 (107) 94 Room Air 08/08/17 03:47 16 08/08/17 03:30 73 18 145/84 (104) 97 Room Air 08/08/17 01:43 97.4 57 12 98 Differential Diagnosis Flank pain, renal colic, obstructive uropathy, biliary colic, cholecystitis, choledocholithiasis, pancreatitis, gastritis, peptic ulcer disease, atypical chest pain, ACS Narrative Course IV access obtained patient placed on web production manager with continuous pulse oximetry patient administered Zofran 4 mg IV and morphine sulfate [address] abdomen and pelvis with contrast ordered EKG ordered EKG sinus rhythm rate [address] elevation or injury pattern or ectopy noted CBC is automated differential mild elevation 12,400; chemistries are found grossly within normal limits except for mild renal insufficiency; urinalysis values in normal range CT abdomen and pelvis with IV contrast ordered per reading radiologist no acute findings small hiatal hernia chronic diverticulosis without diverticulitis no renal or ureteral calculi no evidence of obstructive uropathy partially calcified gallstone and gallbladder Patient feels well denies any pain continues to have soft nontender abdomen no right upper quadrant tenderness no clinical Garcia sign and epigastric tenderness no generalized abdominal tenderness to direct palpation no guarding or rebound no palpable pulsatile mass no flank tenderness. Patient is desirous of being discharged to home does not want to stay for observation or further gallbladder evaluation states follow-up with his primary care provider is encouraged to avoid fried or fatty foods to follow-up with his primary and do obtain a referral to general surgery. Patient is also encouraged to return to the emergency department if any recurrent pain or symptoms. Diagnosis Primary Impression: Right flank pain Additional Impression: Cholelithiasis NOS Referrals: Primary Care Physician 1 day Patient Instructions: Narcotic given in the ED, General Instructions Departure Forms: Tests/Procedures, Work Release Special Instructions: no work x 2 days Additional Instructions: Follow clear liquid diet for next 12-24 hours advance to bland/Dipesh diet avoiding fried and fatty foods advance to regular diet as tolerated Follow-up with primary care provider call office in a.m. to schedule follow-up appointment Use Zofran as prescribed as needed for nausea and/or vomiting Monitor temperature every 4 hours with thermometer take acetaminophen/Tylenol every 4 hours for fever 100.4F or greater or for minor pain Return to the emergency department for pain fever vomiting or any concerns Med/Other Pt SpecificInfo: Prescription(s) given Scripts Ondansetron Odt (Zofran Odt) 4 Mg Tab 4 MG SL Q6HR Y for Nausea/Vomiting, #10 TAB 0 Refills Prov: Silvana Sidhu MD 08/08/17 Disposition: 01 DISCHARGE HOME Condition: Stable Silvana Sidhu MD Aug 08, 2017 05:13
[2017-08-08] MEDS ORDERED: ZOFR4TAB3 SL (05:28)
[2017-08-08 05:33] VITALS: BP 135/77
--- NOTE | 2017-08-08 19:48 | EKG ---
Date Performed: 08/08/2017 Time Performed: 03:32:46 PTAGE: 72 years EKG: Sinus rhythm Since previous tracing, no significant change noted NORMAL ECG PREVIOUS TRACING : 07/14/2017 09.18 DOCTOR: Selvin Sandoval Interpretating Date/Time 08/08/2017 19:47:18
== END 2017-08-08 06:29 | disposition home or self-care (01) ==
LOC: PHED 01:36
DX: K80.20 Calculus of gallbladder without cholecystitis without obstruction (principal); K57.30 Diverticulosis of large intestine without perforation or abscess without bleeding; K44.9 Diaphragmatic hernia without obstruction or gangrene; R10.9 Unspecified abdominal pain; I47.1 Supraventricular tachycardia; Z87.442 Personal history of urinary calculi
CPT/HCPCS: 74177; 80053; 81001; 83690; 85025; 93005; 96361; 96374; 96375; 99285; J2270; J2405; J7030; Q9967

== ENCOUNTER 2017-12-19 16:12 | Observation (INO) | payer MEDICAID ==
[2017-12-19] VITALS (7 sets, daily range): BP systolic 87–135; BP diastolic 62–80; PULSE 65–192; RESP 18–20; TEMP 96.3; O2SAT 92–98
[~2017-12-19] VITALS: Ht 185.4 cm; Wt 87.0 kg
[~2017-12-19 16:12] MED LIST changes: +ZOFR4TAB3 SL
[2017-12-19] MEDS ORDERED: ADENOSINE IV SOLN 3 MG/ML 2 ML VIAL ONE (16:16)
--- NOTE | 2017-12-19 16:27 | PD ---
HPI Chief Complaint: Cardiac Complaint Time Seen by Provider: 16:14 Travel History International Travel<30 days: No Contact w/Intl Traveler<30days: No Traveled to known affect area: No History of Present Illness HPI Patient 72-year-old male with a history of paroxysmal SVT presents emergency department with palpitations for the past 3 hours. Patient states he was just feeling very fatigued and having some mild blurred vision but no chest pain no shortness of breath no abdominal pain. He is follow with a byproduct engineer out of [place], he states he has had a complete heart workup which was negative. Patient states that he has never had a cardiac catheterization before but did have other tests. He states his heart doctor told him he had a healthy heart. Symptoms moderate, for the past 3 hours, associated signs symptoms in context as above. PFSH Past Medical History Heart Rhythm Problems: Yes (SVT) Cardiovascular Problems: Yes Diminished Hearing: No Kidney Stones: Yes Immunizations Current: No Past Surgical History Abdominal Surgery: Yes Other Surgery: Yes (LEFT INGUINAL HERNIA REPAIR) Social History Alcohol Use: No Tobacco Use: No Substance Use: No Allergies-Medications (Allergen,Severity, Reaction): Coded Allergies: No Known Allergies (Verified Allergy, Unknown, 08/08/17) Reported Meds & Prescriptions Reported Meds & Active Scripts Active No Active Prescriptions or Reported Medications Review of Systems Except as stated in HPI: all other systems reviewed are Neg Physical Exam Narrative GENERAL: Well-developed well-nourished, no obvious distress peer SKIN: Focused skin assessment warm/dry. HEAD: Atraumatic. Normocephalic. EYES: Pupils equal and round. No scleral icterus. No injection or drainage. ENT: No nasal bleeding or discharge. Mucous membranes pink and moist. NECK: Trachea midline. No JVD. CARDIOVASCULAR: Very tachycardic with regular rhythm, 2+ bilateral equal pulses in all 4 extremities.. No murmur appreciated. No carotid bruits RESPIRATORY: No accessory muscle use. Clear to auscultation. Breath sounds equal bilaterally. GASTROINTESTINAL: Abdomen soft, non-tender, nondistended. Hepatic and splenic margins not palpable. MUSCULOSKELETAL: No obvious deformities. No clubbing. No cyanosis. No edema. NEUROLOGICAL: Awake and alert. No obvious cranial nerve deficits. Motor grossly within normal limits. Normal speech. PSYCHIATRIC: Appropriate mood and affect; insight and judgment normal. Data Data Last Documented VS Vital Signs Date Time Temp Pulse Resp B/P (MAP) Pulse Ox O2 Delivery O2 Flow Rate FiO2 12/19/17 18:21 76 18 98/67 (77) 98 Room Air Orders Orders Adenosine Inj (Adenocard Inj) (12/19/17 16:16) Electrocardiogram (12/19/17 16:19) Ckmb (Isoenzyme) Profile (12/19/17 16:19) Complete Blood Count With Diff (12/19/17 16:19) Comprehensive Metabolic Panel (12/19/17 16:19) Magnesium (Mg) (12/19/17 16:19) Prothrombin Time / Inr (Pt) (12/19/17 16:19) Act Partial Throm Time (Ptt) (12/19/17 16:19) Troponin I (12/19/17 16:19) Chest, Single Ap (12/19/17 16:19) Ecg Monitoring (12/19/17 16:19) Iv Access Insert/Monitor (12/19/17 16:19) Oximetry (12/19/17 16:19) Oxygen Administration (12/19/17 16:19) Sodium Chloride 0.9% Flush (Ns Flush) (12/19/17 16:30) Sodium Chlorid 0.9% 500 Ml Inj (Ns 500 M (12/19/17 16:45) I-Stat Profile (12/19/17 16:29) Admit Order (Ed Use Only) (12/19/17 ) Labs Laboratory Tests Test 12/19/17 16:29 White Blood Count 8.9 TH/MM3 Red Blood Count 5.19 MIL/MM3 Hemoglobin 15.5 GM/DL Bedside Hemoglobin G/DL Hematocrit 46.9 % Bedside Hematocrit % Mean Corpuscular Volume 90.4 FL Mean Corpuscular Hemoglobin 29.9 PG Mean Corpuscular Hemoglobin Concent 33.1 % Red Cell Distribution Width 12.6 % Platelet Count 183 TH/MM3 Mean Platelet Volume 8.3 FL Neutrophils (%) (Auto) 77.9 % Lymphocytes (%) (Auto) 14.3 % Monocytes (%) (Auto) 5.2 % Eosinophils (%) (Auto) 1.3 % Basophils (%) (Auto) 1.3 % Neutrophils # (Auto) 6.9 TH/MM3 Lymphocytes # (Auto) 1.3 TH/MM3 Monocytes # (Auto) 0.5 TH/MM3 Eosinophils # (Auto) 0.1 TH/MM3 Basophils # (Auto) 0.1 TH/MM3 CBC Comment AUTO DIFF Differential Comment AUTO DIFF CONFIRMED Prothrombin Time 10.7 SEC Prothromb Time International Ratio 1.1 RATIO Activated Partial Thromboplast Time 24.4 SEC Bedside Sodium 141 MMOL/L Blood Urea Nitrogen 21 MG/DL Creatinine 2.17 MG/DL Random Glucose 145 MG/DL Total Protein 7.1 GM/DL Albumin 3.7 GM/DL Calcium Level 9.5 MG/DL Magnesium Level 2.0 MG/DL Alkaline Phosphatase 107 U/L Aspartate Amino Transf (AST/SGOT) 15 U/L Alanine Aminotransferase (ALT/SGPT) 21 U/L Total Bilirubin 0.7 MG/DL Sodium Level 142 MEQ/L Potassium Level 4.2 MEQ/L Chloride Level 110 MEQ/L Carbon Dioxide Level 21.1 MEQ/L Bedside Potassium 4.2 MMOL/L Bedside Chloride 109 MMOL/L Anion Gap 11 MEQ/L Bedside Blood Urea Nitrogen 25 MG/DL Bedside Creatinine 2.0 MG/DL Estimat Glomerular Filtration Rate 30 ML/MIN Bedside Glucose 147 MG/DL Total Creatine Kinase 83 U/L Troponin I LESS THAN 0.02 NG/ML MDM Medical Decision Making Medical Screen Exam Complete: Yes Emergency Medical Condition: Yes Differential Diagnosis ACS, UT, arrhythmia, atrial flutter, sinus tachycardia, PSVT, Amina-Parkinson- White syndrome, Narrative Course Patient was roomed in the emergency department, supraventricular tachycardia at a rate of 190, differential diagnosis includes reentrant AV julius tachycardia versus atrial flutter. EKG was performed again showing supraventricular tachycardia at a rate of 190, while assessing the patient he is alert and awake and oriented, I have asked nurses to pull adenosine, while assessing his carotid arteries free of bruits the patient has spontaneous conversion to normal sinus rhythm, repeat EKG was performed which shows sinus rhythm rate [address] segment changes normal axis normal R-wave progression. She is an absolutely normal EKG. Review of his cardiac telemetry at the time of conversion showed that he did have 3 wide-complex beats and short success in followed by that a few sinus tachycardia beats followed by 2 additional couplets of wide-complex beats followed by the conversion to normal sinus rhythm. Patient has not had any sustained or nonsustained ventricular tachycardia only a triplet and 2 couplets. He is feeling much better, blood pressure normalized, he did not require chemical cardioversion. Patient also states that while he was driving and the symptoms onset he had some blurry vision and felt like he might go out, however when asked if he was actually going to pass out he states no. Review of the patient's records shows that he is presented to this emergency department twice in the past year for similar, he is always received a prescription of propranolol but has not had this medication in some time. He states he takes no medications on a regular basis. Review the patient's labs show a normal troponin, his creatinine is 2.0 and review of the trend shows his been gradually increasing over the past few months. Patient states that he is not on any medications and was not told that he ever had kidney problems before and actually had lab work within the past few weeks at his primary care physicians. All things being considered not sure if the patient is going to his follow-up appointments or if there is been a miscommunication between him and his physicians regarding his worsening creatinine his PSVT and possible for ACS has not been fully explored this patient for his history. Therefore I have discussed the patient with Dr. Ortiz for observation status and she is agreeable. Diagnosis Primary Impression: Pre-syncope Additional Impressions: Coupled heart beats SVT (supraventricular tachycardia) Acute kidney injury Admitting Information Admitting Physician Requests: Observation Scripts No Active Prescriptions or Reported Meds Condition: Jaime Kong MD Dec 19, 2017 16:27
[2017-12-19] MEDS ORDERED: SODIUM CHLORIDE 0.9% FLUSH 10 ML FLUSH IVF PRN (16:30)
[2017-12-19 16:38] LABS: AUTOMATED NEUTROPHIL # 6.9 TH/MM3 (1.8-7.7); BASOPHIL # 0.1 TH/MM3 (0-0.2); BASOPHIL % 1.3 % (0.0-2.0); EOSINOPHIL # 0.1 TH/MM3 (0-0.4); EOSINOPHIL % 1.3 % (0.0-4.0); HEMATOCRIT 46.9 % (39.0-51.0); HEMOGLOBIN 15.5 GM/DL (13.0-17.0); LYMPH % 14.3 % (9.0-44.0); LYMPHOCYTE # 1.3 TH/MM3 (1.0-4.8); MEAN CELL VOLUME 90.4 FL (80.0-100.0); MEAN CORPUSCULAR HEMOGLOBIN 29.9 PG (27.0-34.0); MEAN CORPUSCULAR HGB CONC 33.1 % (32.0-36.0); MEAN PLATELET VOLUME 8.3 FL (7.0-11.0); MONO % 5.2 % (0.0-8.0); MONOCYTE # 0.5 TH/MM3 (0-0.9); NEUT % 77.9 % (16.0-70.0); PLATELET COUNT 183 TH/MM3 (150-450); RED BLOOD COUNT 5.19 MIL/MM3 (4.50-5.90); RED CELL DISTRIBUTION WIDTH 12.6 % (11.6-17.2); WHITE BLOOD COUNT 8.9 TH/MM3 (4.0-11.0)
[2017-12-19] MEDS ORDERED: SODIUM CHLORID 0.9% 500 ML INJ 500 ML IV ONE (16:45)
--- NOTE | 2017-12-19 16:51 | RADRPT ---
EXAM DATE: 12/19/2017 4:32 PM EDT AGE/SEX: 72 years / Male INDICATIONS: Fatigue and palpitations for 3 hours. CLINICAL DATA: This is the patient's initial encounter. Patient reports that signs and symptoms have been present for 1 day and indicates a pain score of 0/10. MEDICAL/SURGICAL HISTORY: None. None. COMPARISON: PO, CHEST SINGLE AP, 06/09/2017. . FINDINGS: A single AP view of the chest demonstrates the lungs to be symmetrically aerated without evidence of mass, infiltrate or effusion. The cardiomediastinal contours are unremarkable. Osseous structures a re intact. There is a nodular appearance to the first costochondral junction. This is stable from the prior study. CONCLUSION: Negative examination. Electronically signed by: Alden Mccoy MD 12/19/2017 4:50 PM EDT
[2017-12-19 17:01] LABS: INTERNATIONAL NORMALIZED RATIO 1.1 RATIO; PROTHROMBIN TIME - PATIENT 10.7 SEC (9.8-11.6)
[2017-12-19 18:01] LABS: ALBUMIN 3.7 GM/DL (3.4-5.0); ALT (GPT) 21 U/L (12-78); AST (GOT) 15 U/L (15-37); BICARBONATE 21.1 MEQ/L (21.0-32.0); BLOOD UREA NITROGEN 21 MG/DL (7-18); CALCIUM 9.5 MG/DL (8.5-10.1); CHLORIDE 110 MEQ/L (98-107); CREATININE 2.17 MG/DL (0.60-1.30); GLOMERULAR FILTRATION RATE 30 ML/MIN (>89); GLUCOSE,RANDOM 145 MG/DL (74-106); SODIUM (NA) 142 MEQ/L (136-145)
[2017-12-19 18:06] LABS: ALKALINE PHOSPHATASE 107 U/L (45-117); TOTAL BILIRUBIN ADULT 0.7 MG/DL (0.2-1.0); TOTAL PROTEIN 7.1 GM/DL (6.4-8.2); TROPONIN I LESS THAN 0.02 NG/ML (0.02-0.05)
[2017-12-19] MEDS ORDERED: NALOXONE HCL 0.4 MG/ML AMP IV PUSH PRN (19:15)
[2017-12-19] MEDS ORDERED: ACETAMINOPHEN 325 MG TAB PO PRN (19:15)
[2017-12-19] MEDS ORDERED: SODIUM CHLORIDE 0.9% FLUSH 10 ML FLUSH IV FLUSH PRN (19:15)
[2017-12-19] MEDS ORDERED: ONDANSETRON HCL 4 MG/2 ML VIAL IVP PRN (19:15)
[2017-12-19] MEDS: HEPARIN SODIUM - SQ 10,000 UNITS/ML VIAL SQ SCH (21:18)
[2017-12-19] MEDS: SODIUM CHLORIDE 0.9% FLUSH 10 ML FLUSH IV FLUSH SCH (21:18)
--- NOTE | 2017-12-19 21:51 | EKG ---
Date Performed: 12/19/2017 Time Performed: 16:15:47 PTAGE: 72 years EKG: SUPRAVENTRICULAR TACHYCARDIA MODERATE ST DEPRESSION ABNORMAL ECG Compared to prior electroc ardiogram, Supraventricular tachycardia is now present . DOCTOR: Clark Townsend Interpretating Date/Time 12/19/2017 21:50:06
--- NOTE | 2017-12-19 21:51 | EKG ---
Date Performed: 12/19/2017 Time Performed: 16:20:55 PTAGE: 72 years EKG: Sinus rhythm NORMAL ECG Compared to prior electrocardiogram, Normal sinus rhythm has replaced Supraventricular t achycardia DOCTOR: Clark Townsend Interpretating Date/Time 12/19/2017 21:49:45
[2017-12-19 23:02] LABS: TROPONIN I 0.17 NG/ML (0.02-0.05)
[2017-12-20] VITALS (8 sets, daily range): BP systolic 112–132; BP diastolic 66–86; PULSE 51–70; RESP 18–20; TEMP 96–97.7; O2SAT 96–99
[2017-12-20] MEDS: HEPARIN SODIUM - SQ 10,000 UNITS/ML VIAL SQ SCH ×3 (04:07→20:52)
--- NOTE | 2017-12-20 05:08 | EKG ---
Date Performed: 12/19/2017 Time Performed: 22:33:22 PTAGE: 72 years EKG: Sinus rhythm WITH FIRST DEGREE AV BLOCK NONSPECIFIC T-WAVE ABNORMALITY ABNORMAL ECG Compared to prior electrocard iogram, Nonspecific T wave changes are now present . PREVIOUS TRACING : 12/19/2017 16.20 DOCTOR: Clark Townsend Interpretating Date/Time 12/20/2017 05:07:42
[2017-12-20 05:48] LABS: AUTOMATED NEUTROPHIL # 6.1 TH/MM3 (1.8-7.7); BASOPHIL # 0.1 TH/MM3 (0-0.2); BASOPHIL % 1.2 % (0.0-2.0); EOSINOPHIL # 0.2 TH/MM3 (0-0.4); EOSINOPHIL % 2.2 % (0.0-4.0); HEMATOCRIT 42.8 % (39.0-51.0); HEMOGLOBIN 14.5 GM/DL (13.0-17.0); LYMPH % 19.2 % (9.0-44.0); LYMPHOCYTE # 1.7 TH/MM3 (1.0-4.8); MEAN CELL VOLUME 88.3 FL (80.0-100.0); MEAN CORPUSCULAR HEMOGLOBIN 29.9 PG (27.0-34.0); MEAN CORPUSCULAR HGB CONC 33.9 % (32.0-36.0); MEAN PLATELET VOLUME 8.7 FL (7.0-11.0); MONOCYTE # 0.5 TH/MM3 (0-0.9); NEUT % 71.4 % (16.0-70.0); PLATELET COUNT 167 TH/MM3 (150-450); RED BLOOD COUNT 4.84 MIL/MM3 (4.50-5.90); RED CELL DISTRIBUTION WIDTH 12.9 % (11.6-17.2); WHITE BLOOD COUNT 8.6 TH/MM3 (4.0-11.0)
[2017-12-20 05:57] LABS: CALCIUM 8.9 MG/DL (8.5-10.1)
[2017-12-20 05:58] LABS: BICARBONATE 24.9 MEQ/L (21.0-32.0)
[2017-12-20 06:01] LABS: CREATININE 1.4 MG/DL (0.60-1.30)
[2017-12-20 06:05] LABS: TROPONIN I 0.17 NG/ML (0.02-0.05)
[2017-12-20] MEDS: VERAPAMIL HCL 120 MG SUSTAINED RELEASE TAB PO SCH ×2 (06:42→08:05)
--- NOTE | 2017-12-20 06:47 | MB ---
cc: Clark Townsend MD, Johnna D DO Goldsmith, Alan S MD DATE: 12/20/2017 HISTORY OF PRESENT ILLNESS: The patient is a pleasant 72-year-old gentleman originally from [place] who I am seeing for supraventricular tachycardia. The patient has had palpitations for the last 10 years. He has been seen by a metal stud framer in [place] approximately 6 months ago and had a negative workup, according to him. The patient notes that he does get the onset of palpitations about every 2 months, which can last minutes to yesterday a few hours. This is often brought on by change in position or breathing and he usually can stop it by changes in breathing. He has no associated symptoms whatsoever and has no cardiac symptoms or history otherwise and is extremely active. He has no high blood pressure, diabetes, or hyperlipidemia. PAST MEDICAL HISTORY: Only remarkable for left inguinal hernia repair. He has had SVT before converted with adenosine. ALLERGIES: NONE. SOCIAL HISTORY: He is single and does not smoke or drink. FAMILY HISTORY: Unremarkable for coronary artery disease. REVIEW OF SYSTEMS: Unremarkable, except for the above. MEDICATIONS: None. EKG: Initial EKG showed rapid SVT which converted spontaneously. They did not place him on medication. He has been in sinus rhythm since with no acute changes. LABORATORY DATA: CBC normal. PT, PTT, normal. Potassium 3.7, creatinine 2.17 and now 1.4. Of note is the fact that his creatinine has been progressively going up. Troponin 0.17 x 2 with low CPKs. IMAGING: Chest x-ray with no active disease. PHYSICAL EXAM: He is alert and oriented x 3. VITAL SIGNS: Afebrile. Vital signs stable. HEAD, EARS, EYES, NOSE AND THROAT: No xanthelasma and oropharyngeal mucosa normal. CHEST: Clear. NECK: JVD normal. HEART: S1, S2. No murmurs or gallops. ABDOMEN: Benign. EXTREMITIES: Show no cyanosis, clubbing, or edema. Pulses 2/2 throughout without bruits. He is not ambulated. PROBLEMS: 1. Supraventricular tachycardia - most likely atrioventricular julius reentry. 2. Elevated troponin - most likely secondary to his supraventricular tachycardia. 3. Worsening chronic kidney disease. RECOMMENDATIONS: 1. We will start him on sustained release verapamil. 2. SPECT nuclear to assess for inducible myocardial ischemia and echocardiogram. 3. If the studies are negative, the patient can followup with his PCP and metal stud framer who he has seen in [place], who is on his insurance. We will not follow but be available if needed. All questions were answered. Clark Townsend MD ASG/DL , 06:29 AM , 06:45 AM
--- NOTE | 2017-12-20 08:03 | HHI.HP ---
[facility] Talya Willis D.O. Admission Diagnosis SVT, Presyncope, DANN. Diagnoses: (1) Paroxysmal SVT (supraventricular tachycardia) (2) Acute kidney failure Chief Complaint: Palpitations Travel History International Travel<30 Days: No Contact w/Intl Traveler <30 Da: No Traveled to Known Affected Are: No History of Present Illness This is a pleasant 72-year-old male patient with a known medical history of proximal SVT presented to the ED with complaints of palpitations. Patient states that he lives an active lifestyle including swimming and biking regularly , does have intermittent palpitations that last several minutes and come and go on their own. Patient states that yesterday he became very fatigued with mild blurry vision and palpitations lasted roughly 3 hours and would not go away, therefore he came to the ED. Patient denies this sensation ever lasting as long as it did yesterday. Patient does follow with lapping machine tender in [place] , was last seen 6 months ago and had a complete heart workup which was reportedly negative. Patient denies a previous stress test or cardiac cath in the past. Denies any recent illness including fever, chills, cough, shortness of breath, nausea, vomiting or diarrhea. PCP is Dr. Willis, was last seen 3 weeks ago with no reports of any changes to his medicines. Patient denies any tobacco abuse. Family history negative for cardiovascular disease. Denies any history of kidney disease. Review of Systems Constitutional: COMPLAINS OF: Fatigue, DENIES: Fever, Chills, Dizziness Endocrine: DENIES: Polydipsia, Polyuria Eyes: COMPLAINS OF: Blurred vision, DENIES: Diplopia Respiratory: DENIES: Cough, Sputum production, Shortness of breath Cardiovascular: COMPLAINS OF: Palpitations, DENIES: Chest pain, Lower Extremity Edema, Orthopnea Gastrointestinal: DENIES: Abdominal pain, Black stools, Bloody stools, Constipation, Diarrhea, Nausea, Vomiting Musculoskeletal: DENIES: Joint pain Hematologic/lymphatic: DENIES: Bruising Immunologic/allergic: DENIES: Eczema Neurologic: DENIES: Abnormal gait Psychiatric: DENIES: Anxiety Except as stated in HPI: all other systems reviewed are Neg Past Family Social History Past Medical History History of paroxysmal SVT History of kidney stones History of gallstones. Past Surgical History Left inguinal hernia repair Reported Medications Active No Active Prescriptions or Reported Medications Allergies: Coded Allergies: No Known Allergies (Verified Allergy, Unknown, 08/08/17) Active Ordered Medications Current Medications Medications (Trade) Dose Ordered Sig/Skyla Route Start Time Stop Time Status Last Admin (NS Flush) 2 ml UNSCH PRN IVF 12/19/17 16:30 (NS Flush) 2 ml UNSCH PRN IV FLUSH 12/19/17 19:15 (NS Flush) 2 ml BID IV FLUSH 12/19/17 21:00 12/20/17 08:29 (Tylenol) 650 mg Q4H PRN PO 12/19/17 19:15 (Zofran Inj) 4 mg Q6H PRN IVP 12/19/17 19:15 (Heparin Inj) 5,000 units Q8H SQ 12/19/17 20:00 12/19/17 21:18 (Narcan Inj) 0.4 mg UNSCH PRN IV PUSH 12/19/17 19:15 (Isoptin Sr) 120 mg DAILY PO 12/20/17 06:30 12/20/17 06:42 Family History Denies any significant family medical history. Social History Denies any alcohol, tobacco or illicit drug use. Physical Exam Vital Signs Vital Signs Date Time Temp Pulse Resp B/P (MAP) Pulse Ox O2 Delivery O2 Flow Rate FiO2 12/20/17 04:00 96.8 60 20 112/66 (81) 98 12/20/17 00:00 96.2 70 20 124/69 (87) 99 12/19/17 21:25 82 12/19/17 21:14 12/19/17 20:20 72 20 121/78 (92) 98 12/19/17 20:00 96.3 65 20 135/80 (98) 96 12/19/17 18:21 76 18 98/67 (77) 98 Room Air 12/19/17 16:37 95 Room Air 12/19/17 16:36 95 Room Air 12/19/17 16:30 89 18 91/62 (72) 96 Room Air 12/19/17 16:26 89 100 Room Air 12/19/17 16:12 192 19 87/71 (22) 92 Physical Exam GENERAL: Well-developed, well-nourished patient in NAD. SKIN: Warm and dry. No rash. HEAD: Normocephalic. Atraumatic. EYES: Pupils equal and round. No scleral icterus. No injection or drainage. ENT: No nasal bleeding or discharge. Mucous membranes pink and moist. NECK: Supple. Trachea midline. CARDIOVASCULAR: Regular rate and rhythm. S1, S2 noted. No murmur appreciated. RESPIRATORY: No accessory muscle use. Clear to auscultation. Breath sounds equal bilaterally. GASTROINTESTINAL: Abdomen soft, non-tender, nondistended. Normoactive bowel sounds x4. MUSCULOSKELETAL: No obvious deformities. Extremities without clubbing, cyanosis , or edema. NEUROLOGICAL: Awake and alert. No obvious cranial nerve deficits. Motor grossly within normal limits. 5/5 muscle strength in bilateral upper and lower extremities. Normal speech. PSYCHIATRIC: Appropriate mood and affect; insight and judgment normal. Laboratory Laboratory Tests Test 12/19/17 16:29 12/19/17 22:35 12/20/17 05:30 White Blood Count 8.9 8.6 Red Blood Count 5.19 4.84 Hemoglobin 15.5 14.5 Bedside Hemoglobin Hematocrit 46.9 42.8 Bedside Hematocrit Mean Corpuscular Volume 90.4 88.3 Mean Corpuscular Hemoglobin 29.9 29.9 Mean Corpuscular Hemoglobin Concent 33.1 33.9 Red Cell Distribution Width 12.6 12.9 Platelet Count 183 167 Mean Platelet Volume 8.3 8.7 Neutrophils (%) (Auto) 77.9 71.4 Lymphocytes (%) (Auto) 14.3 19.2 Monocytes (%) (Auto) 5.2 6.0 Eosinophils (%) (Auto) 1.3 2.2 Basophils (%) (Auto) 1.3 1.2 Neutrophils # (Auto) 6.9 6.1 Lymphocytes # (Auto) 1.3 1.7 Monocytes # (Auto) 0.5 0.5 Eosinophils # (Auto) 0.1 0.2 Basophils # (Auto) 0.1 0.1 CBC Comment AUTO DIFF DIFF FINAL Differential Comment AUTO DIFF CONFIRMED Prothrombin Time 10.7 Prothromb Time International Ratio 1.1 Activated Partial Thromboplast Time 24.4 Bedside Sodium 141 Blood Urea Nitrogen 21 26 Creatinine 2.17 1.40 Random Glucose 145 104 Total Protein 7.1 Albumin 3.7 Calcium Level 9.5 8.9 Magnesium Level 2.0 Alkaline Phosphatase 107 Aspartate Amino Transf (AST/SGOT) 15 Alanine Aminotransferase (ALT/SGPT) 21 Total Bilirubin 0.7 Sodium Level 142 140 Potassium Level 4.2 3.7 Chloride Level 110 109 Carbon Dioxide Level 21.1 24.9 Bedside Potassium 4.2 Bedside Chloride 109 Anion Gap 11 6 Bedside Blood Urea Nitrogen 25 Bedside Creatinine 2.0 Estimat Glomerular Filtration Rate 30 50 Bedside Glucose 147 Total Creatine Kinase 83 74 72 Troponin I LESS THAN 0.02 0.17 0.17 Result Diagram: 12/20/17 0530 12/20/17 0530 Imaging Last Impressions Chest X-Ray 12/19/17 1619 Signed Impressions: CONCLUSION: Negative examination. Septic Shock Reassessment Septic shock perfusion: reassessment completed Caprini VTE Risk Assessment Caprini VTE Risk Assessment: Mod/High Risk (score >= 2) Caprini Risk Assessment Model Point Value = 1 Point Value = 2 Point Value = 3 Point Value = 5 Age 41-60 Minor surgery BMI > 25 kg/m2 Swollen legs Varicose veins or History of unexplained or recurrent spontaneous Oral contraceptives or hormone replacement Sepsis (< 1 month) Serious lung disease, including pneumonia (< 1 month) Abnormal pulmonary function Acute myocardial infarction Congestive heart failure (< 1 month) History of inflammatory bowel disease Medical patient at bed rest Age 61-74 Arthroscopic surgery Major open surgery (> 45 min) Laparoscopic surgery (> 45 min) Malignancy Confined to bed (> 72 hours) Immobilizing plaster cast Central venous access Age >= 75 History of VTE Family history of VTE Factor V Leiden Prothrombin [id number] Lupus anticoagulant Anticardiolipin antibodies Elevated serum homocysteine Heparin-induced thrombocytopenia Other congenital or acquired thrombophilia Stroke (< 1 month) Elective arthroplasty Hip, pelvis, or leg fracture Acute spinal cord injury (< 1 month) Prophylaxis Regimen Total Risk Factor Score Risk Level Prophylaxis Regimen 0-1 Low Early ambulation 2 Moderate Order ONE of the following: *Sequential Compression Device (SCD) *Heparin 5000 units SQ BID 3-4 Higher Order ONE of the following medications: *Heparin 5000 units SQ TID *Enoxaparin/Lovenox 40 mg SQ daily (WT < 150 kg, CrCl > 30 mL/min) *Enoxaparin/Lovenox 30 mg SQ daily (WT < 150 kg, CrCl > 10-29 mL/min) *Enoxaparin/Lovenox 30 mg SQ BID (WT < 150 kg, CrCl > 30 mL/min) AND/OR *Sequential Compression Device (SCD) 5 or more Highest Order ONE of the following medications: *Heparin 5000 units SQ TID (Preferred with Epidurals) *Enoxaparin/Lovenox 40 mg SQ daily (WT < 150 kg, CrCl > 30 mL/min) *Enoxaparin/Lovenox 30 mg SQ daily (WT < 150 kg, CrCl > 10-29 mL/min) *Enoxaparin/Lovenox 30 mg SQ BID (WT < 150 kg, CrCl > 30 mL/min) AND *Sequential Compression Device (SCD) Assessment and Plan Problem List: (1) Paroxysmal SVT (supraventricular tachycardia) ICD Code: I47.1 - Supraventricular tachycardia Status: Acute (2) Acute kidney failure ICD Code: N17.9 - Acute kidney failure, unspecified Assessment and Plan Palpitations suspect secondary to SVT Elevated troponin suspect secondary to above History of paroxysmal SVT - Was given 1 dose of adenosine in ED. Heart rate now in the 60s. No signs of SVT. - Serial EKGs and serial troponins have been ordered for ruling out ACS purposes. Serial troponins flat, mild increase 0.17 suspect secondary to above. - EKG reviewed upon presentation showing SVT with HR in the 190's. Repeat EKG showing sinus rhythm with controlled heart rate, occasional PVCs. - Chest x-ray reviewed negative for any acute cardiopulmonary disease. - Will continue cardiac telemetry, monitor for any arrhythmias. - Cardiology consulted, appreciate input recommendations. Will obtain 2D echo. Pending. - Started on Verapamil. Continue. - Patient will undergo a cardiac nuclear stress test in a.m. to further rule out any ischemia. - Further treatment plan and hospitalization will depend on nuclear imaging results. Patient is stable at this time agreeable to plan. Acute on chronic kidney disease - Creatinine 2.1 on presentation, has improved to 1.4 today. Unaware of baseline kidney function. - Was given NS bolus in ED. Encourage PO intake and hydration. - Continue to monitor. DVT prophylaxis: SCDs. Heparin. Minal Ann Dec 20, 2017 08:03
--- NOTE | 2017-12-20 08:04 | EKG ---
Date Performed: 12/20/2017 Time Performed: 04:18:42 PTAGE: 72 years EKG: Sinus rhythm WITH OCCASIONAL SUPRAVENTRICULAR PREMATURE COMPLEXES BORDERLINE ECG Compared to prior electrocardiog ed[place], rate has decreased and Premature atrial contraction are now present . PREVIOUS TRACING : 12/19/2017 22.33 DOCTOR: Clark Townsend Interpretating Date/Time 12/20/2017 08:03:31
[2017-12-20] MEDS: SODIUM CHLORIDE 0.9% FLUSH 10 ML FLUSH IV FLUSH SCH ×2 (08:29→20:52)
--- NOTE | 2017-12-20 10:09 | ECHRPT ---
Indication: CORONARY ATHEROSCLEROSIS CONCLUSIONS Normal left ventricular size. Mild concentric left ventricular hypertrophy. Mild mitral valve regurgitation. Aortic valve sclerosis is present. There is trace tricuspid valve regurgitation. The estimated pulmonary arterial pressure is 27.6 mmHg. Mild pulmonary valve regurgitation. The left ventricular systolic function is normal with an estimat ed ejection fraction in the range of 60-65%. BP: 112 / 66 HR: Rhythm: Sinus MEASUREMENTS (Male / Female) Normal Values Technical Quality:Fair 2D ECHO LV Diastolic Diameter PLAX 4.5 cm 4.2 - 5.9 / 3.9 - 5.3 cm LV Systolic Diameter PLAX 3.2 cm IVS Diastolic Thickness 1.0 cm 0.6 - 1.0 / 0.6 - 0.9 cm LVPW Diastolic Thickness 1.0 cm 0.6 - 1.0 / 0.6 - 0.9 cm LV Relative Wall Thickness 0.5 RV Internal Dim ED PLAX 2.7 cm LVOT Diameter 1.9 cm Aortic Root Diameter 3.9 cm LA Systolic Diameter LX 3.1 cm 3.0 - 4.0 / 2.7 - 3.8 cm M-MODE AV Cusp Separation MM 2.2 cm DOPPLER AV Peak Velocity 108.0 cm/s AV Peak Gradient 4.7 mmHg AV Mean Gradient 3.0 mmHg AV Velocity Time Integral 24.3 cm LVOT Peak Velocity 62.4 cm/s LVOT Peak Gradient 1.6 mmHg LVOT Velocity Time Integral 15.0 cm AV Area Cont Eq vti 1.8 cm AV Area Cont Eq pk 1.6 cm Mitral E Point Velocity 49.9 cm/s Mitral A Point Velocity 31.6 cm/s Mitral E to A Ratio 1.6 LV E' Lateral Velocity 14.0 cm/s Mitral E to LV E' Lateral Ratio 3.6 LV E' Septal Velocity 8.3 cm/s Mitral E to LV E' Septal Ratio 6.0 TR Peak Velocity 210.0 cm/s TR Peak Gradient 17.6 mmHg Right Atrial Pressure 10.0 mmHg Pulmonary Artery Systolic Pressu 27.6 mmHg Right Ventricular Systolic Press 27.6 mmHg PV Peak Velocity 64.7 cm/s PV Peak Gradient 1.7 mmHg FINDINGS LEFT VENTRICLE Normal left ventricular size. Mild concentric left ventricular hypertrophy. The left ventricular systolic function is normal with an estimated ejection fraction in the range of 60-65%. RIGHT VENTRICLE Normal right ventricular size and systolic function. LEFT ATRIUM The left atrial size is normal. RIGHT ATRIUM The right atrial size is normal. ATRIAL SEPTUM No atrial level shunt is demonstrated by color flow Doppler interrogation. AORTA The aortic root and proximal ascending aorta are normal in size on limited imaging. MITRAL VALVE Structurally normal mitral valve. Mild mitral valve regurgitation. AORTIC VALVE Aortic valve sclerosis is present. TRICUSPID VALVE There is trace tricuspid valve regurgitation. The estimated pulmonary arterial pressure is 27.6 mmHg. PULMONARY VALVE Mild pulmonary valve regurgitation. VESSELS The inferior vena cava is normal in size. PERICARDIUM No pericardial effusion. Reji Lim MD, FACC (Electronically Signed) Final Date:20 December 2017 10:08
[2017-12-21 00:07] VITALS: BP 123/85; PULSE 70; RESP 20; TEMP 96.7; O2SAT 97
[2017-12-21 04:17] VITALS: BP 131/65; PULSE 70; RESP 20; TEMP 96.5; O2SAT 98
[2017-12-21] MEDS: HEPARIN SODIUM - SQ 10,000 UNITS/ML VIAL SQ SCH ×2 (04:17→11:41)
[2017-12-21 05:50] LABS: BICARBONATE 24.2 MEQ/L (21.0-32.0); CALCIUM 9.2 MG/DL (8.5-10.1)
[2017-12-21 05:54] LABS: CREATININE 1.2 MG/DL (0.60-1.30)
[2017-12-21 07:11] VITALS: PULSE 54
[2017-12-21 07:19] VITALS: BP 123/71; PULSE 60; RESP 20; TEMP 96.2; O2SAT 98
[2017-12-21] MEDS: VERAPAMIL HCL 120 MG SUSTAINED RELEASE TAB PO SCH (08:28)
[2017-12-21] MEDS: SODIUM CHLORIDE 0.9% FLUSH 10 ML FLUSH IV FLUSH SCH (08:30)
[2017-12-21] MEDS ORDERED: REGADENOSON INJ 0.4 MG/5 ML SYR IV ONE (09:04)
--- NOTE | 2017-12-21 09:17 | HHI.PR ---
Subjective Remarks Follow-up palpitations and SVT. Patient seen and examined, status post Lexiscan this morning. Report reviewed no ischemia and adequate EF. Patient denies any acute changes overnight. He is feeling much improved symptoms have resolved. Patient will be discharged home to follow-up with PCP and board hammer operator. Vital signs are stable. Afebrile overnight. Objective Vitals Vital Signs Date Time Temp Pulse Resp B/P (MAP) Pulse Ox O2 Delivery O2 Flow Rate FiO2 12/21/17 07:19 96.2 60 20 123/71 (88) 98 12/21/17 04:17 96.5 70 20 131/65 (87) 98 12/21/17 00:07 96.7 70 20 123/85 (98) 97 12/20/17 23:00 62 12/20/17 20:27 96.5 63 20 132/86 (101) 98 12/20/17 16:00 97.7 56 18 124/71 (88) 96 12/20/17 15:05 54 12/20/17 12:00 96.0 51 18 126/71 (89) 96 I/O 12/20/17 12/20/17 12/20/17 12/21/17 12/21/17 12/21/17 07:00 15:00 23:00 07:00 15:00 23:00 Intake Total 480 ml Output Total 400 ml Balance -400 ml 480 ml Intake Oral 480 ml Output Urine Total 400 ml # Voids 3 3 1 # Bowel Movements 0 Result Diagram: 12/20/17 0530 12/21/17 0526 Imaging Last Impressions Myocardial Perfusion Scan Nuc Med 12/20/17 0000 Signed Impressions: CONCLUSION: 1. No evidence of stress-induced ischemia. 2. Intact wall motion with 64% ejection fraction. Chest X-Ray 12/19/17 1619 Signed Impressions: CONCLUSION: Negative examination. Objective Remarks GENERAL: Well-developed, well-nourished patient in NAD. SKIN: Warm and dry. No rash. HEAD: Normocephalic. Atraumatic. EYES: Pupils equal and round. No scleral icterus. No injection or drainage. ENT: No nasal bleeding or discharge. Mucous membranes pink and moist. NECK: Supple. Trachea midline. CARDIOVASCULAR: Regular rate and rhythm. S1, S2 noted. No murmur appreciated. No chest pain to palpation RESPIRATORY: No accessory muscle use. Clear to auscultation. Breath sounds equal bilaterally. GASTROINTESTINAL: Abdomen soft, non-tender, nondistended. Normoactive bowel sounds x4. MUSCULOSKELETAL: No obvious deformities. Extremities without clubbing, cyanosis , or edema. NEUROLOGICAL: Awake and alert. No obvious cranial nerve deficits. Motor grossly within normal limits. 5/5 muscle strength in bilateral upper and lower extremities. Normal speech. PSYCHIATRIC: Appropriate mood and affect; insight and judgment normal. A/P Problem List: (1) Paroxysmal SVT (supraventricular tachycardia) ICD Code: I47.1 - Supraventricular tachycardia Status: Acute (2) Acute kidney failure ICD Code: N17.9 - Acute kidney failure, unspecified Assessment and Plan Palpitations suspect secondary to SVT Elevated troponin suspect secondary to above History of paroxysmal SVT - Was given 1 dose of adenosine in ED. Heart rate now in the 60s. No signs of SVT. - Serial EKGs and serial troponins have been ordered for ruling out ACS purposes. Serial troponins flat, mild increase 0.17 suspect secondary to above. - EKG reviewed upon presentation showing SVT with HR in the 190's. Repeat EKG showing sinus rhythm with controlled heart rate, occasional PVCs. - Chest x-ray reviewed negative for any acute cardiopulmonary disease. - Patient continued on cardiac telemetry, no arrhythmias overnight. - Cardiology consulted, appreciate input recommendations. Echocardiogram showing EF 60-65%. Normal left ventricular size. Mild left ventricular hypertrophy. Pulmonary arterial pressure 27.6. - Started on Verapamil. Will continue upon discharge. - Patient underwent Lexiscan, no ischemia noted. Adequate EF. -Okay to discharge home today follow-up with PCP and board hammer operator. Vital signs have been stable. All symptoms have improved. Acute on chronic kidney disease. Acute kidney disease improved. - Creatinine 2.1 on presentation, has improved to 1.4. Creatinine 1.2 today. - Was given NS bolus in ED. Encourage PO intake and hydration. - Follow-up PCP. DVT prophylaxis: SCDs. Heparin. Discharge patient to home. Condition on discharge: Improved. Heart healthy regular Diet as tolerated. Ad Ester activity. Rx written: Please see discharge plan. Follow-up with primary care physician and board hammer operator. Minal Ann Dec 21, 2017 09:17
--- NOTE | 2017-12-21 10:50 | RADRPT ---
EXAM DATE: 12/21/2017 9:41 AM EDT AGE/SEX: 72 years / Male INDICATIONS:Coronary artery disease. . Palpitations, fatigue and blurred vision. CLINICAL DATA: This is the patient's initial encounter. Patient reports that signs and symptoms have been present for 1 day and indicates a pain score of 0/10. MEDICAL/SURGICAL HISTORY: . Supraventricular tachycardia. Inguinal hernia repair. COMPARISON: [facility], CHEST SINGLE AP, 12/19/2017. . DOSE: 30 mCi Tc 99m Myoview at stress 31.5 mCi [id number] at rest 0.4 mg Lexiscan STRESS SYMPTOMS: Weird feeling. EJECTION FRACTION: 64 % TECHNIQUE: The patient underwent pharmacologic stress with infusion of prescribed dose. Continuous ECG tracing was monitored during stress. Gated SPECT imaging was performed after stress and conventi onal SPECT imaging was performed at rest. The examination was performed on a SPECT/CT scanner, both attenuation and non-corrected datasets were reviewed. FINDINGS: Distribution: The maximum perfused segment at stress is in the septal wall. Perfusion Study: The pattern of perfusion at stress is within normal limits with regional variation s perfusion within 30%. The pattern of perfusion at stress and rest is unchanged. No evidence of redi stribution. The sum stress score is 1. Gated Study: There are intact wall motion and wall thickening without hypokinetic or dyskinetic segm ents. The ejection fraction is calculated at 64%. RISK CATEGORY: Low (<1% Annual Motality Rate) CONCLUSION: 1. No evidence of stress-induced ischemia. 2. Intact wall motion with 64% ejection fraction. Electronically signed by: Alden Rosenthal MD 12/21/2017 10:49 AM EDT
--- NOTE | 2017-12-21 10:59 | HHI.DCPOC ---
Discharge Care Plan Diagnosis: (1) Paroxysmal SVT (supraventricular tachycardia) Goals to Promote Your Health * To prevent worsening of your condition and complications * To maintain your health at the optimal level Directions to Meet Your Goals Take your medications as prescribed Follow your dietary instruction Follow activity as directed Keep your appointments as scheduled Take your immunizations and boosters as scheduled If your symptoms worsen call your PCP, if no PCP go to Urgent Care Center or Emergency Room Smoking is Dangerous to Your Health. Avoid second hand smoke Call the 24-hour hour crisis hotline for domestic abuse at Minal Ann Dec 21, 2017 10:59
[2017-12-21] MEDS ORDERED: VERA1TAB9 PO (11:00)
[2017-12-21 12:00] VITALS: BP 125/71; PULSE 62; RESP 20; TEMP 97.2; O2SAT 98
== END 2017-12-21 13:06 | disposition home or self-care (01) ==
LOC: PHED 16:12 → PHEDA 19:13 → PH3B 21:09
PROVIDERS: ADMIT Hospitalist; ATTEND Hospitalist
DX: I47.1 Supraventricular tachycardia (principal); N17.9 Acute kidney failure, unspecified; N18.9 Chronic kidney disease, unspecified; R55 Syncope and collapse; R53.83 Other fatigue; H53.8 Other visual disturbances; R74.8 Abnormal levels of other serum enzymes; Z87.442 Personal history of urinary calculi; R94.31 Abnormal electrocardiogram [ECG] [EKG]
CPT/HCPCS: 71045; 78452; 80048; 80053; 82550; 83735; 84484; 85025; 85610; 85730; 93005; 93017; 93306; 96360; 96361; 96372; 99285; A9502; G0378; J1644; J2785; J7040; J0153